=== PATIENT | female | born 1970 | race Caucasian/White ===

== ENCOUNTER 2016-07-03 13:14 | Inpatient (IN) | payer SELFPAY ==
[~2016-07-03] VITALS: Ht 172.7 cm; Wt 69.3 kg
[~2016-07-03 13:14] MED LIST: FOLI-17 PO; LEVO100T PO; MAGN400T26 PO; MULT-6 PO; NICO1PAT5 TD; OMEP-110 PO; PHOS250T3 PO; THIA100T10 PO
[2016-07-03] MEDS ORDERED: SODIUM CHLORIDE 0.9% 1,000 ML IV ONE (13:46)
[2016-07-03] MEDS ORDERED: FAMOTIDINE 20 MG/2 ML IVP ONE (14:00)
[2016-07-03] MEDS ORDERED: MAALOX/HYOSCYAMINE/LIDOCAINE 45 ML BOTTLE PO ONE ×2 (14:00→18:00)
[2016-07-03] MEDS ORDERED: LORazepam 2 MG/ML, 1ML IVPush ONE (14:00)
[2016-07-03] MEDS ORDERED: SODIUM CHLORIDE 0.9% 1,000ML IVBOLUS ONE (14:00)
[2016-07-03] MEDS ORDERED: ONDANSETRON 2MG/ML, 2ML IVPush ONE (14:00)
[2016-07-03] MEDS ORDERED: MAALOX/HYOSCYAMINE/LIDOCAINE 45 ML BOTTLE ONE (14:04)
[2016-07-03] MEDS ORDERED: ONDANSETRON 2MG/ML, 2ML ONE (14:04)
[2016-07-03] MEDS ORDERED: FAMOTIDINE 20 MG/2 ML ONE (14:05)
[2016-07-03] MEDS ORDERED: LORazepam 2 MG/ML, 1ML ONE (14:05)
[2016-07-03 14:25] LABS: HEMOGLOBIN 12.1 g/dL (11.7-16.4)
[2016-07-03 14:38] LABS: ASPARTATE AMINO TRANSFERASE 173 U/L (15-37); BLOOD UREA NITROGEN 7 mg/dL (7-18)
[2016-07-03 16:32] LABS: ICTOTEST POSITIVE
[2016-07-03] MEDS ORDERED: SODIUM CHLORIDE 0.9% 1,000 ML IV SCH (17:28)
[2016-07-03] MEDS ORDERED: LABETALOL 5MG/ML, 20ML IV PRN (17:30)
[2016-07-03] MEDS ORDERED: POLYETHYLENE GLYCOL 17 GM PACKET PO PRN (17:30)
[2016-07-03] MEDS ORDERED: LORazepam 1MG TABLET PO PRN ×4 (18:00)
[2016-07-03] MEDS ORDERED: LORazepam 2 MG/ML, 1ML IV PRN ×4 (18:00)
[2016-07-03 20:00] VITALS: BP 122/86
[2016-07-03] MEDS ORDERED: FAMOTIDINE 20 MG/2 ML IV SCH (21:00)
[2016-07-03] MEDS: POTASSIUM CHLORIDE 20 MEQ, MAGNESIUM SULFATE 1 GM, FOLIC ACID 1 MG, THIAMINE 100 MG, MV... IV SCH (21:54)
[2016-07-03] MEDS: PANTOPRAZOLE 40 MG IV IVPush SCH (21:54)
[2016-07-03] MEDS: HYDROcodone/APAP 5/325 TABLET PO PRN (22:16)
[2016-07-04] VITALS (7 sets, daily range): BP systolic 91–101; BP diastolic 61–69
[2016-07-04] MEDS: ENOXAPARIN 40 MG/0.4 ML SQ SCH (05:23)
[2016-07-04] MEDS ORDERED: LEVOTHYROXINE 100 MCG TABLET PO SCH (06:00)
[2016-07-04 06:01] LABS: HEMOGLOBIN 9.7 g/dL (11.7-16.4)
[2016-07-04 06:35] LABS: ASPARTATE AMINO TRANSFERASE 110 U/L (15-37); BLOOD UREA NITROGEN 5 mg/dL (7-18)
[2016-07-04] MEDS ORDERED: MAGNESIUM SULFATE PMX 2GM/50ML 50 ML IV ONE (08:00)
[2016-07-04] MEDS ORDERED: POTASSIUM CHLORIDE 20 MEQ TAB.ER.PRT PO ONE (08:00)
[2016-07-04] MEDS: D5%-0.45NACL+KCL 20MEQ 1,000 ML IV SCH (08:26)
[2016-07-04] MEDS: FOLIC ACID 1 MG TABLET PO SCH (08:27)
[2016-07-04] MEDS: PANTOPRAZOLE 40 MG IV IVPush SCH ×2 (08:27→20:50)
[2016-07-04] MEDS: THIAMINE 100MG TABLET PO SCH (08:27)
[2016-07-04] MEDS: HYDROcodone/APAP 5/325 TABLET PO PRN ×3 (08:28→18:34)
[2016-07-04] MEDS ORDERED: MAALOX/HYOSCYAMINE/LIDOCAINE 45 ML BOTTLE PO ONE (08:30)
[2016-07-04] MEDS: SENNA/DOCUSATE TABLET PO SCH (09:00)
[2016-07-04] MEDS: LORazepam 2 MG/ML, 1ML IV PRN (11:06)
[2016-07-04] MEDS: POTASSIUM CHLORIDE 20 MEQ, MAGNESIUM SULFATE 1 GM, FOLIC ACID 1 MG, THIAMINE 100 MG, MV... IV SCH (18:29)
[2016-07-05 03:00] VITALS: BP 96/62
[2016-07-05 03:42] VITALS: BP 97/65
[2016-07-05] MEDS: LORazepam 0.5MG TABLET PO PRN ×2 (03:43→11:57)
[2016-07-05] MEDS: LEVOTHYROXINE 125 MCG TABLET PO SCH (05:11)
[2016-07-05] MEDS: ENOXAPARIN 40 MG/0.4 ML SQ SCH (05:11)
[2016-07-05] MEDS: D5%-0.45NACL+KCL 20MEQ 1,000 ML IV SCH ×3 (05:11→23:00)
[2016-07-05 06:03] LABS: HEMOGLOBIN 10.7 g/dL (11.7-16.4)
[2016-07-05 06:19] LABS: ASPARTATE AMINO TRANSFERASE 77 U/L (15-37); BLOOD UREA NITROGEN 2 mg/dL (7-18)
[2016-07-05 06:33] LABS: ANISOCYTOSIS 1+; POLYCHROMASIA 1+
[2016-07-05 06:35] LABS: LARGE PLATELETS 1+
[2016-07-05 07:25] VITALS: BP 112/77
[2016-07-05 07:29] VITALS: BP 144/98
[2016-07-05] MEDS: ONDANSETRON 2MG/ML, 2ML IVP PRN ×2 (08:48→18:29)
[2016-07-05] MEDS: THIAMINE 100MG TABLET PO SCH (08:59)
[2016-07-05] MEDS: SENNA/DOCUSATE TABLET PO SCH (08:59)
[2016-07-05] MEDS: PANTOPRAZOLE 40 MG IV IVPush SCH ×2 (08:59→20:23)
[2016-07-05] MEDS: FOLIC ACID 1 MG TABLET PO SCH (08:59)
[2016-07-05] MEDS: HYDROcodone/APAP 5/325 TABLET PO PRN ×3 (09:00→20:23)
[2016-07-05 12:59] VITALS: BP 117/81
[2016-07-05 19:30] VITALS: BP 105/73
[2016-07-05] MEDS: POTASSIUM CHLORIDE 20 MEQ, MAGNESIUM SULFATE 1 GM, FOLIC ACID 1 MG, THIAMINE 100 MG, MV... IV SCH (22:20)
[2016-07-05] MEDS: MAGNESIUM HYDROXIDE 8%, 30ML UDC PO PRN (22:20)
[2016-07-06 01:58] VITALS: BP 107/72
[2016-07-06 05:43] LABS: ASPARTATE AMINO TRANSFERASE 65 U/L (15-37); BLOOD UREA NITROGEN 1 mg/dL (7-18)
[2016-07-06] MEDS: ONDANSETRON 2MG/ML, 2ML IVP PRN (06:00)
[2016-07-06] MEDS: LEVOTHYROXINE 125 MCG TABLET PO SCH (06:00)
[2016-07-06] MEDS: HYDROcodone/APAP 5/325 TABLET PO PRN ×4 (06:00→22:40)
[2016-07-06] MEDS: ENOXAPARIN 40 MG/0.4 ML SQ SCH (06:01)
[2016-07-06] MEDS: THIAMINE 100MG TABLET PO SCH (08:43)
[2016-07-06] MEDS: FOLIC ACID 1 MG TABLET PO SCH (08:43)
[2016-07-06] MEDS: SENNA/DOCUSATE TABLET PO SCH (08:43)
[2016-07-06] MEDS: PANTOPRAZOLE 40 MG IV IVPush SCH ×2 (08:43→20:28)
[2016-07-06] MEDS: MAGNESIUM HYDROXIDE 8%, 30ML UDC PO PRN (08:43)
[2016-07-06 09:15] VITALS: BP 108/76
[2016-07-06] MEDS: D5%-0.45NACL+KCL 20MEQ 1,000 ML IV SCH ×2 (11:55→22:39)
[2016-07-06] MEDS: ONDANSETRON ODT 4 MG PO PRN ×2 (11:55→17:10)
[2016-07-06 13:00] VITALS: BP 115/76
[2016-07-06 19:46] VITALS: BP 101/68
[2016-07-07 01:52] VITALS: BP 95/62
[2016-07-07] MEDS: POTASSIUM CHLORIDE 20 MEQ, MAGNESIUM SULFATE 1 GM, FOLIC ACID 1 MG, THIAMINE 100 MG, MV... IV SCH (01:58)
[2016-07-07] MEDS: ONDANSETRON 2MG/ML, 2ML IVP PRN (05:33)
[2016-07-07] MEDS: LORazepam 2 MG/ML, 1ML IV PRN (05:34)
[2016-07-07] MEDS: ENOXAPARIN 40 MG/0.4 ML SQ SCH (05:42)
[2016-07-07] MEDS: LEVOTHYROXINE 125 MCG TABLET PO SCH (05:43)
[2016-07-07 05:54] LABS: BLOOD UREA NITROGEN 2 mg/dL (7-18)
[2016-07-07 05:59] LABS: ASPARTATE AMINO TRANSFERASE 65 U/L (15-37)
[2016-07-07 07:40] VITALS: BP 107/71
[2016-07-07] MEDS ORDERED: ERGOCALCIFEROL 50,000 UNIT CAPSULE PO SCH (08:00)
[2016-07-07] MEDS: THIAMINE 100MG TABLET PO SCH (08:44)
[2016-07-07] MEDS: PANTOPRAZOLE 40 MG IV IVPush SCH ×2 (08:44→21:24)
[2016-07-07] MEDS: FOLIC ACID 1 MG TABLET PO SCH (08:44)
[2016-07-07] MEDS: SENNA/DOCUSATE TABLET PO SCH (09:00)
[2016-07-07] MEDS: HYDROcodone/APAP 5/325 TABLET PO PRN ×2 (11:29→18:35)
[2016-07-07 14:45] VITALS: BP 100/57
[2016-07-07 19:34] VITALS: BP 96/64
[2016-07-08] MEDS: POTASSIUM CHLORIDE 20 MEQ, MAGNESIUM SULFATE 1 GM, FOLIC ACID 1 MG, THIAMINE 100 MG, MV... IV SCH (00:13)
[2016-07-08] MEDS: LORazepam 0.5MG TABLET PO PRN (00:35)
[2016-07-08 01:36] VITALS: BP 92/56
[2016-07-08 05:54] LABS: HEMOGLOBIN 9.2 g/dL (11.7-16.4)
[2016-07-08 06:14] LABS: ASPARTATE AMINO TRANSFERASE 50 U/L (15-37); BLOOD UREA NITROGEN 3 mg/dL (7-18)
[2016-07-08] MEDS: ENOXAPARIN 40 MG/0.4 ML SQ SCH (06:20)
[2016-07-08] MEDS: LEVOTHYROXINE 125 MCG TABLET PO SCH (06:20)
[2016-07-08 07:11] VITALS: BP 113/75
[2016-07-08] MEDS: PANTOPRAZOLE 40 MG IV IVPush SCH ×2 (08:31→21:35)
[2016-07-08] MEDS: SENNA/DOCUSATE TABLET PO SCH (08:32)
[2016-07-08] MEDS: FOLIC ACID 1 MG TABLET PO SCH (08:32)
[2016-07-08] MEDS: THIAMINE 100MG TABLET PO SCH (08:32)
[2016-07-08] MEDS: HYDROcodone/APAP 5/325 TABLET PO PRN ×4 (08:44→23:15)
[2016-07-08 12:58] VITALS: BP 111/77
[2016-07-08 19:51] VITALS: BP 113/78
[2016-07-09] MEDS: POTASSIUM CHLORIDE 20 MEQ, MAGNESIUM SULFATE 1 GM, FOLIC ACID 1 MG, THIAMINE 100 MG, MV... IV SCH (00:12)
[2016-07-09 01:00] VITALS: BP 110/70
[2016-07-09 04:44] LABS: HEMOGLOBIN 10.1 g/dL (11.7-16.4)
[2016-07-09 04:56] LABS: BLOOD UREA NITROGEN 3 mg/dL (7-18)
[2016-07-09 05:00] LABS: ASPARTATE AMINO TRANSFERASE 48 U/L (15-37)
[2016-07-09] MEDS: LEVOTHYROXINE 125 MCG TABLET PO SCH (05:13)
[2016-07-09] MEDS: ENOXAPARIN 40 MG/0.4 ML SQ SCH (05:13)
[2016-07-09] MEDS: HYDROcodone/APAP 5/325 TABLET PO PRN ×2 (05:14→09:12)
[2016-07-09] MEDS: THIAMINE 100MG TABLET PO SCH (09:12)
[2016-07-09] MEDS: PANTOPRAZOLE 40 MG IV IVPush SCH (09:12)
[2016-07-09] MEDS: FOLIC ACID 1 MG TABLET PO SCH (09:12)
[2016-07-09] MEDS: SENNA/DOCUSATE TABLET PO SCH (09:15)
[2016-07-09 09:31] VITALS: BP 93/65
[2016-07-09] MEDS ORDERED: ERGO500017 PO (10:32)
[2016-07-09] MEDS ORDERED: LEVO125T PO (10:32)
[2016-07-09] MEDS ORDERED: OMEP-110 PO (10:32)
== END 2016-07-09 12:40 | disposition home or self-care (01) | DRG 896 ==
LOC: ED 14:45 → EDIP 16:54 → 4EST 18:38 → DCLOUNGE 07-09 11:41
PROC: 0T9B70Z Drainage of Bladder with Drainage Device, Via Natural or Artificial Opening (ICD-10-PCS; principal; 2016-07-03)
DX: F10.239 Alcohol dependence with withdrawal, unspecified (principal); E43 Unspecified severe protein-calorie malnutrition; E87.1 Hypo-osmolality and hyponatremia; I50.30 Unspecified diastolic (congestive) heart failure; I95.1 Orthostatic hypotension; D53.9 Nutritional anemia, unspecified; E03.9 Hypothyroidism, unspecified; E16.2 Hypoglycemia, unspecified; Z68.23 Body mass index [BMI] 23.0-23.9, adult; E55.9 Vitamin D deficiency, unspecified; E87.6 Hypokalemia; I11.0 Hypertensive heart disease with heart failure; K70.10 Alcoholic hepatitis without ascites; R82.71 Bacteriuria; F17.210 Nicotine dependence, cigarettes, uncomplicated; K70.0 Alcoholic fatty liver; K80.20 Calculus of gallbladder without cholecystitis without obstruction; N20.0 Calculus of kidney; Z82.49 Family history of ischemic heart disease and other diseases of the circulatory system; Z83.3 Family history of diabetes mellitus; Z87.442 Personal history of urinary calculi; Z83.49 Family history of other endocrine, nutritional and metabolic diseases; Z71.41 Alcohol abuse counseling and surveillance of alcoholic; Z98.51 Tubal ligation status; Z90.89 Acquired absence of other organs; Z79.899 Other long term (current) drug therapy; Z85.41 Personal history of malignant neoplasm of cervix uteri
CPT/HCPCS: 36415; 74022; 76700; 80053; 80061; 81001; 82306; 82607; 82746; 82962; 83690; 83735; 84100; 84439; 84443; 85025; 85610; 87077; 87086; 87186; 89055; 93005; 93306; 96361; 96374; 96375; J1650; J2405; J3411; J3475; J3480; J7042; Q0162; C9113; J2060; J7030; S0028

== ENCOUNTER 2016-09-04 15:52 | Emergency (ER) | payer SELFPAY ==
[~2016-09-04] VITALS: Ht 172.7 cm; Wt 57.0 kg
[~2016-09-04 15:52] MED LIST changes: +ERGO500017 PO; +LEVO125T PO
[2016-09-04] MEDS ORDERED: SODIUM CHLORIDE 0.9% 1,000ML IVBOLUS ONE (16:30)
[2016-09-04] MEDS ORDERED: KETOROLAC 30 MG/1 ML IVPush ONE (16:30)
[2016-09-04] MEDS ORDERED: SODIUM CHLORIDE FLUSH 10ML SYR IVF ONE (16:30)
[2016-09-04] MEDS ORDERED: KETOROLAC 30 MG/1 ML ONE (16:55)
[2016-09-04 17:29] LABS: BLOOD UREA NITROGEN 4 mg/dL (7-18)
[2016-09-04 17:34] LABS: ASPARTATE AMINO TRANSFERASE 28 U/L (15-37)
[2016-09-04 17:40] LABS: IS PT STATUS REG ER OR PRE ER? YES
[2016-09-04] MEDS ORDERED: POTASSIUM CHLORIDE 20 MEQ TAB.ER.PRT PO ONE (18:30)
[2016-09-04] MEDS ORDERED: POTASSIUM CHLORIDE 20 MEQ TAB.ER.PRT ONE (18:36)
[2016-09-04 19:01] VITALS: BP 124/85
== END 2016-09-04 19:03 | disposition home or self-care (01) ==
LOC: ED 18:57
DX: E87.6 Hypokalemia (principal); E03.9 Hypothyroidism, unspecified
CPT/HCPCS: 36415; 71010; 80053; 84484; 85025; 85610; 85730; 93005; 96361; 96374; 99285; J1885; J7030

== ENCOUNTER 2016-09-22 03:41 | Emergency (ER) | payer SELFPAY ==
[~2016-09-22] VITALS: Ht 175.3 cm; Wt 55.0 kg
[2016-09-22 07:20] LABS: BLOOD UREA NITROGEN 6 mg/dL (7-18)
[2016-09-22] MEDS ORDERED: POTASSIUM CHLORIDE 20 MEQ TAB.ER.PRT ONE (07:58)
[2016-09-22 08:00] VITALS: BP 114/83
[2016-09-22] MEDS ORDERED: POTASSIUM CHLORIDE 20 MEQ TAB.ER.PRT PO ONE (08:00)
== END 2016-09-22 08:38 | disposition home or self-care (01) ==
LOC: ED 07:10
DX: S09.90XA Unspecified injury of head, initial encounter (principal); S16.1XXA Strain of muscle, fascia and tendon at neck level, initial encounter; F10.10 Alcohol abuse, uncomplicated; R93.8 Abnormal findings on diagnostic imaging of other specified body structures; F17.200 Nicotine dependence, unspecified, uncomplicated; E87.6 Hypokalemia; E07.9 Disorder of thyroid, unspecified; W01.0XXA Fall on same level from slipping, tripping and stumbling without subsequent striking against object, initial encounter; Y93.89 Activity, other specified; Y92.098 Other place in other non-institutional residence as the place of occurrence of the external cause; Y99.8 Other external cause status; Y90.9 Presence of alcohol in blood, level not specified
CPT/HCPCS: 36415; 70450; 72125; 80048; 82550; 85025; 99285

== ENCOUNTER 2016-09-24 07:31 | Emergency (ER) | payer SELFPAY ==
[~2016-09-24] VITALS: Ht 175.3 cm; Wt 57.0 kg
[2016-09-24] MEDS ORDERED: ONDANSETRON 2MG/ML, 2ML IVPush ONE (08:00)
[2016-09-24] MEDS ORDERED: SODIUM CHLORIDE FLUSH 10ML SYR IVF ONE (08:00)
[2016-09-24] MEDS ORDERED: LORazepam 2 MG/ML, 1ML IVPush ONE (08:00)
[2016-09-24] MEDS ORDERED: SODIUM CHLORIDE 0.9% 1,000ML IVBOLUS ONE (08:00)
[2016-09-24] MEDS ORDERED: FAMOTIDINE 20 MG/2 ML IVP ONE (08:00)
[2016-09-24] MEDS ORDERED: LORazepam 2 MG/ML, 1ML ONE (08:26)
[2016-09-24] MEDS ORDERED: ONDANSETRON 2MG/ML, 2ML ONE (08:26)
[2016-09-24] MEDS ORDERED: FAMOTIDINE 20 MG/2 ML ONE (08:26)
[2016-09-24 08:34] LABS: BLOOD UREA NITROGEN 8 mg/dL (7-18)
[2016-09-24 08:35] LABS: ASPARTATE AMINO TRANSFERASE 61 U/L (15-37)
[2016-09-24] MEDS ORDERED: THIAMINE 100MG TABLET ONE (08:54)
[2016-09-24] MEDS ORDERED: THIAMINE 100MG TABLET PO ONE (09:00)
[2016-09-24 09:28] LABS: PATH.CAST-FLAG NOT PRESENT; SPERM-FLAG NOT PRESENT; SRC-FLAG NOT PRESENT; XTAL-FLAG NOT PRESENT; YLC-FLAG NOT PRESENT
[2016-09-24] MEDS ORDERED: CEFTRIAXONE PMX 1GM/50ML 50 ML ONE (09:47)
[2016-09-24 09:50] VITALS: BP 142/85
[2016-09-24] MEDS ORDERED: CEFTRIAXONE PMX 1GM/50ML 50 ML IV ONE (10:00)
[2016-09-24] MEDS ORDERED: CEFTRIAXONE 1,000 MG IV ONE (10:00)
== END 2016-09-24 10:14 | disposition home or self-care (01) ==
LOC: ED 08:49
DX: N30.90 Cystitis, unspecified without hematuria (principal); R11.2 Nausea with vomiting, unspecified; K92.2 Gastrointestinal hemorrhage, unspecified; E03.9 Hypothyroidism, unspecified; R19.7 Diarrhea, unspecified
CPT/HCPCS: 36415; 80053; 81001; 83690; 84703; 85025; 87077; 87086; 87186; 93005; 96361; 96365; 96375; 99285; J0696; J2060; J2405; J7030; S0028

== ENCOUNTER 2017-02-26 14:42 | Emergency (ER) | payer SELFPAY ==
[~2017-02-26] VITALS: Ht 175.3 cm; Wt 60.8 kg
[~2017-02-26 14:42] MED LIST changes: +NICO-487 TD; -NICO1PAT5 TD
[2017-02-26] MEDS ORDERED: FAMOTIDINE 20 MG/2 ML ONE (15:13)
[2017-02-26] MEDS ORDERED: ONDANSETRON 2MG/ML, 2ML ONE ×2 (15:13→18:56)
[2017-02-26] MEDS ORDERED: SODIUM CHLORIDE 0.9% 1,000ML IVBOLUS ONE (15:30)
[2017-02-26] MEDS ORDERED: FAMOTIDINE 20 MG/2 ML IVP ONE (15:30)
[2017-02-26] MEDS ORDERED: ONDANSETRON 2MG/ML, 2ML IVPush ONE ×2 (15:30→19:00)
[2017-02-26] MEDS ORDERED: IBUP1TAB11 PO (15:35)
[2017-02-26 15:50] LABS: HEMATOCRIT 43.1 % (34.6-47.8); HEMOGLOBIN 14.9 g/dL (11.7-16.4); WHITE BLOOD COUNT 5.7 x10^3/uL (3.4-10)
[2017-02-26] MEDS ORDERED: THIAMINE 100MG TABLET PO ONE (16:00)
[2017-02-26 16:05] LABS: BLOOD UREA NITROGEN 5 mg/dL (7-18)
[2017-02-26 16:10] LABS: ASPARTATE AMINO TRANSFERASE 278 U/L (15-37)
[2017-02-26] MEDS ORDERED: THIAMINE 100MG TABLET ONE (16:13)
[2017-02-26 18:04] LABS: PATH.CAST-FLAG NOT PRESENT; SPERM-FLAG NOT PRESENT; SRC-FLAG NOT PRESENT; XTAL-FLAG NOT PRESENT; YLC-FLAG NOT PRESENT
[2017-02-26] MEDS ORDERED: CEFTRIAXONE PMX 1GM/50ML 50 ML IV ONE (18:30)
[2017-02-26] MEDS ORDERED: CEFTRIAXONE PMX 1GM/50ML 50 ML ONE (18:56)
[2017-02-26 19:06] VITALS: BP 112/82
== END 2017-02-26 20:03 | disposition home or self-care (01) ==
LOC: ED 18:27
DX: M48.56XA Collapsed vertebra, not elsewhere classified, lumbar region, initial encounter for fracture (principal); N30.90 Cystitis, unspecified without hematuria; F10.20 Alcohol dependence, uncomplicated; E03.9 Hypothyroidism, unspecified; R11.10 Vomiting, unspecified; R19.7 Diarrhea, unspecified
CPT/HCPCS: 36415; 72072; 72110; 72148; 80053; 80307; 81001; 83690; 84703; 85025; 87077; 87086; 96361; 96365; 96375; 96376; 99285; J0696; J2405; J7030; 87186; G0479; S0028

== ENCOUNTER → 2017-04-19 | Outpatient (CLI) | payer BC, OTHER ==
[~2017-04-19] MED LIST changes: +IBUP1TAB11 PO
== END | disposition home or self-care (01) ==
LOC: CFH 08:17
PROVIDERS: ATTEND Neurological Surgery
DX: M48.56XA Collapsed vertebra, not elsewhere classified, lumbar region, initial encounter for fracture (principal); N20.0 Calculus of kidney; M85.88 Other specified disorders of bone density and structure, other site; M48.061 Spinal stenosis, lumbar region without neurogenic claudication
CPT/HCPCS: 72131

== ENCOUNTER 2017-05-12 07:48 | Inpatient (IN) | payer BC ==
[~2017-05-12] VITALS: Ht 172.7 cm; Wt 59.4 kg
[2017-05-12] MEDS ORDERED: LEVO125T PO (08:09)
[2017-05-12] MEDS ORDERED: SODIUM CHLORIDE 0.9% 1,000ML IVBOLUS ONE (08:30)
[2017-05-12] MEDS ORDERED: SODIUM CHLORIDE FLUSH 10ML SYR IVF ONE (08:30)
[2017-05-12] MEDS ORDERED: LORazepam 2 MG/ML, 1ML IVPush ONE (08:30)
[2017-05-12] MEDS ORDERED: ONDANSETRON 2MG/ML, 2ML IVPush ONE (08:30)
[2017-05-12 08:39] LABS: BASOPHILS # (AUTO) 0.05 x10^3/uL (0-0.1); BASOPHILS % (AUTO) 1 % (0-1); EOSINOPHILS # (AUTO) 0.04 x10^3/uL (0-0.4); EOSINOPHILS % (AUTO) 1 % (1-7); LYMPHOCYTES # (AUTO) 1.23 x10^3/uL (1-3.4); LYMPHOCYTES % (AUTO) 18 % (22-44); MD NO; MEAN CORPUSCULAR HEMOGLOBIN 35.4 pg (27.0-34.8); MONOCYTES # (AUTO) 0.38 x10^3/uL (0.2-0.8); MONOCYTES % (AUTO) 6 % (2-9); NEUTROPHILS # (AUTO) 4.98 x10^3/uL (1.8-6.8); NEUTROPHILS % (AUTO) 75 % (42-75); PLATELET COUNT 144 x10^3/uL (130-400); RED BLOOD COUNT 3.61 x10^6/uL (3.82-5.3)
[2017-05-12] MEDS ORDERED: ONDANSETRON 2MG/ML, 2ML ONE (08:39)
[2017-05-12] MEDS ORDERED: LORazepam 2 MG/ML, 1ML ONE (08:39)
[2017-05-12 08:50] LABS: ALANINE AMINOTRANSFERASE 70 U/L (12-78); ALBUMIN 3.5 g/dL (3.4-5.0); CHLORIDE 69 mmol/L (98-107); CREATININE 1.07 mg/dL (0.55-1.02)
[2017-05-12 08:55] LABS: ALKALINE PHOSPHATASE 311 U/L (45-117); BILIRUBIN,TOTAL 1.5 mg/dL (0.2-1.0); TOTAL PROTEIN 7.9 g/dL (6.4-8.2); TROPONIN I < 0.015 ng/mL (0.000-0.045)
[2017-05-12 09:00] LABS: ANION GAP 13 mmol/L (5-15)
[2017-05-12] MEDS ORDERED: SODIUM CHLORIDE 0.9% 1,000 ML IV ONE (09:16)
[2017-05-12] MEDS ORDERED: POTASSIUM CHLORIDE 40 MEQ in SODIUM CHLORIDE 0.9% 500 ML IV ONE (09:30)
[2017-05-12] MEDS ORDERED: ONDANSETRON 2MG/ML, 2ML IVPush PRN (10:00)
[2017-05-12] MEDS ORDERED: CHLORDIAZEPOXIDE 25 MG CAPSULE PO PRN ×2 (10:00)
[2017-05-12] MEDS ORDERED: MAGNESIUM SULFATE PMX 2GM/50ML 50 ML IV ONE (10:00)
[2017-05-12] MEDS ORDERED: METOCLOPRAMIDE 5 MG/ML, 2ML IVPush PRN (10:00)
[2017-05-12] MEDS ORDERED: CHLORDIAZEPOXIDE 10 MG CAPSULE PO PRN (10:00)
[2017-05-12] MEDS ORDERED: FOLIC ACID 5 MG/ML IM ONE ×2 (10:00→12:30)
[2017-05-12] MEDS: FOLIC ACID IM ONE ×2 (11:00→11:43)
[2017-05-12] MEDS: FAMOTIDINE 20 MG/2 ML IVPush SCH ×2 (11:42→20:28)
[2017-05-12] MEDS: POTASSIUM CHLORIDE 40 MEQ in D5%-LACTATED RINGERS 1,000 ML IV SCH ×2 (11:42→22:08)
[2017-05-12] MEDS: NICOTINE 7 MG/24 HR PATCH.TD24 TD SCH (11:42)
[2017-05-12 13:31] VITALS: BP 113/73
[2017-05-12] MEDS: CHLORDIAZEPOXIDE 25 MG CAPSULE PO PRN ×2 (14:51→21:25)
[2017-05-12 16:03] LABS: ANION GAP 10 mmol/L (5-15); CALCIUM 8.1 mg/dL (8.5-10.1); CHLORIDE 84 mmol/L (98-107)
[2017-05-12] MEDS: MAGNESIUM CHLORIDE 64 MG TABLET.DR PO SCH ×3 (16:40→21:26)
[2017-05-12 20:00] VITALS: BP 97/77
[2017-05-12 21:34] VITALS: BP 113/82
[2017-05-13 02:25] VITALS: BP 93/57
[2017-05-13 07:00] VITALS: BP 91/56
[2017-05-13 07:35] LABS: ALANINE AMINOTRANSFERASE 42 U/L (12-78); ALBUMIN 2.3 g/dL (3.4-5.0); ANION GAP 7 mmol/L (5-15); CALCIUM 8.1 mg/dL (8.5-10.1); CHLORIDE 95 mmol/L (98-107)
[2017-05-13 07:37] LABS: ALKALINE PHOSPHATASE 219 U/L (45-117); BILIRUBIN,TOTAL 0.9 mg/dL (0.2-1.0); TOTAL PROTEIN 5.4 g/dL (6.4-8.2)
[2017-05-13] MEDS: FAMOTIDINE 20 MG/2 ML IVPush SCH ×2 (08:40→20:53)
[2017-05-13] MEDS: MAGNESIUM CHLORIDE 64 MG TABLET.DR PO SCH ×3 (08:40→20:53)
[2017-05-13] MEDS: LEVOTHYROXINE 125 MCG TABLET PO SCH (08:40)
[2017-05-13] MEDS: POTASSIUM CHLORIDE 40 MEQ in D5%-LACTATED RINGERS 1,000 ML IV SCH (08:40)
[2017-05-13] MEDS: NICOTINE 7 MG/24 HR PATCH.TD24 TD SCH (08:41)
[2017-05-13] MEDS: CHLORDIAZEPOXIDE 25 MG CAPSULE PO PRN (11:24)
[2017-05-13 13:10] VITALS: BP 91/56
[2017-05-13 15:31] LABS: INTERNATIONAL NORMALIZED RATIO 0.99 (0.93-1.1); PROTHROMBIN TIME 10.2 Seconds (9.6-11.5)
[2017-05-13 15:34] LABS: ANION GAP 6 mmol/L (5-15); CALCIUM 8.4 mg/dL (8.5-10.1); CHLORIDE 97 mmol/L (98-107); CREATININE 0.79 mg/dL (0.55-1.02)
[2017-05-13 16:20] VITALS: BP 103/71
[2017-05-13] MEDS ORDERED: FENTANYL PF 250 MCG/5ML ONE (16:35)
[2017-05-13] MEDS ORDERED: MIDAZOLAM 1 MG/ML, 2ML ONE (16:35)
[2017-05-13] MEDS ORDERED: PROPOFOL 10 MG/ML, 20ML ONE (16:37)
[2017-05-13] MEDS ORDERED: ROCURONIUM 10 MG/ML,10ML ONE (16:37)
[2017-05-13] MEDS ORDERED: SUCCINYLCHOLINE 20 MG/ML, 10ML ONE (16:38)
[2017-05-13] MEDS ORDERED: GLYCOPYRROLATE 0.4 MG/2 ML, 2ML ONE (16:38)
[2017-05-13] MEDS ORDERED: NEOSTIGMINE 1 MG/ML, 10ML ONE (16:38)
[2017-05-13] MEDS ORDERED: DEXAMETHASONE 4 MG/ML, 1ML ONE ×2 (16:39)
[2017-05-13] MEDS ORDERED: ONDANSETRON 2MG/ML, 2ML ONE (16:39)
[2017-05-13] MEDS ORDERED: PHENYLEPHRINE 10 MG/ML ONE (16:56)
[2017-05-13] MEDS ORDERED: CEFOTETAN PMX 2GM/50ML 50 ML ONE (16:56)
[2017-05-13] MEDS ORDERED: ONDANSETRON 2MG/ML, 2ML IVPush PRN (17:00)
[2017-05-13] MEDS ORDERED: LABETALOL 5MG/ML, 20ML IV PRN (17:00)
[2017-05-13] MEDS ORDERED: OXYcodone 5 MG/5 ML ORAL.SOL UDC PO PRN (17:00)
[2017-05-13] MEDS ORDERED: ACETAMINOPHEN 325 MG TABLET PO PRN (17:00)
[2017-05-13] MEDS ORDERED: hydrALAzine 20 MG/ML, 1ML IV PRN (17:00)
[2017-05-13] MEDS ORDERED: FENTANYL PF 100 MCG/2ML IV PRN (17:00)
[2017-05-13] MEDS ORDERED: PROMETHAZINE 12.5 MG SUPP PR PRN (17:00)
[2017-05-13] MEDS ORDERED: HYDROmorphone 1 MG/ML, 1ML IV PRN (17:00)
[2017-05-13] MEDS ORDERED: MEPERIDINE/PF 25MG/0.5ML IVPush PRN (17:00)
[2017-05-13] MEDS ORDERED: BUPIVACAINE/PF-EPI 0.5% 1:200K IM ONE (17:16)
[2017-05-13] MEDS ORDERED: THROMBIN 5,000 UNIT VIAL TP ONE (17:28)
[2017-05-13] MEDS ORDERED: ACETAMINOPHEN 650 MG/20.3 ML UDC ONE (18:13)
[2017-05-13] MEDS ORDERED: OXYcodone 5 MG/5 ML ORAL.SOL UDC ONE (18:14)
[2017-05-13 19:15] VITALS: BP 129/87
[2017-05-13] MEDS ORDERED: OXYcodone/APAP 5/325MG TABLET PO PRN (19:30)
[2017-05-13] MEDS ORDERED: morphine SULFATE 10 MG/ML, 1ML IVPush PRN (19:30)
[2017-05-13] MEDS ORDERED: OXYcodone IR 5MG TABLET PO PRN (19:30)
[2017-05-14 00:30] VITALS: BP 84/52
[2017-05-14 00:46] VITALS: BP 92/59
[2017-05-14] MEDS: POTASSIUM CHLORIDE 40 MEQ in D5%-LACTATED RINGERS 1,000 ML IV SCH ×2 (03:34→05:10)
[2017-05-14] MEDS: LEVOTHYROXINE 125 MCG TABLET PO SCH (06:04)
[2017-05-14 06:15] VITALS: BP 91/55
[2017-05-14] MEDS ORDERED: THIAMINE 100 MG in DEXTROSE 5% 50 ML IVPB SCH (09:00)
[2017-05-14] MEDS: MAGNESIUM CHLORIDE 64 MG TABLET.DR PO SCH (09:01)
[2017-05-14] MEDS: NICOTINE 7 MG/24 HR PATCH.TD24 TD SCH (09:01)
[2017-05-14] MEDS: FAMOTIDINE 20 MG/2 ML IVPush SCH (09:01)
[2017-05-14] MEDS ORDERED: OXYcodone IR 5MG TABLET ONE (09:25)
[2017-05-14] MEDS ORDERED: MULT1TAB60 PO (10:36)
[2017-05-14] MEDS ORDERED: FOLI0.4T2 PO (10:36)
[2017-05-14] MEDS ORDERED: THIA100T6 PO (10:36)
[2017-05-14] MEDS ORDERED: OXYcodone IR 5MG TABLET PO PRN (11:30)
[2017-05-14 12:27] VITALS: BP 117/79
== END 2017-05-14 13:00 | disposition home or self-care (01) | DRG 417 ==
LOC: ED 08:34 → EDIP 09:22 → 4EST 10:44
PROVIDERS: ADMIT Hospitalist; ATTEND Family Medicine
PROC: 0FB03ZX Excision of Liver, Percutaneous Approach, Diagnostic (ICD-10-PCS; 2017-05-13)
PROC: 0FT44ZZ Resection of Gallbladder, Percutaneous Endoscopic Approach (ICD-10-PCS; principal; 2017-05-13 16:00)
DX: K80.10 Calculus of gallbladder with chronic cholecystitis without obstruction (principal); N17.0 Acute kidney failure with tubular necrosis; E87.1 Hypo-osmolality and hyponatremia; E87.3 Alkalosis; F10.239 Alcohol dependence with withdrawal, unspecified; E87.8 Other disorders of electrolyte and fluid balance, not elsewhere classified; E03.9 Hypothyroidism, unspecified; E87.6 Hypokalemia; K74.60 Unspecified cirrhosis of liver; K76.0 Fatty (change of) liver, not elsewhere classified; Z79.899 Other long term (current) drug therapy; Z85.41 Personal history of malignant neoplasm of cervix uteri; Z87.891 Personal history of nicotine dependence
CPT/HCPCS: 36415; 71045; 74018; 74181; 76700; 80048; 80053; 83735; 84484; 85025; 85610; 88304; 88307; 88313; 93005; 96365; 96366; 96375; J1100; J2250; J2405; J2704; J2710; J3010; J3411; J3480; J0330; J2060; J2270; J2370; J3475; J7030; J7040; J7121; S0028; S0074

== ENCOUNTER 2017-05-17 04:55 | Emergency (ER) | payer BC ==
[~2017-05-17] VITALS: Ht 172.7 cm; Wt 65.4 kg
[~2017-05-17 04:55] MED LIST changes: +FOLI0.4T2 PO; +MULT1TAB60 PO; +THIA100T6 PO
[2017-05-17 05:07] VITALS: BP 144/78
[2017-05-17] MEDS ORDERED: MORPHINE SULFATE 4 MG/ML, 1ML IVPush PRN (06:30)
[2017-05-17] MEDS ORDERED: SODIUM CHLORIDE FLUSH 10ML SYR IVF ONE (06:30)
[2017-05-17] MEDS ORDERED: ONDANSETRON 2MG/ML, 2ML IVPush ONE (06:30)
[2017-05-17] MEDS ORDERED: MORPHINE SULFATE 4 MG/ML, 1ML ONE (06:48)
[2017-05-17] MEDS ORDERED: ONDANSETRON 2MG/ML, 2ML ONE (06:49)
[2017-05-17 07:18] LABS: BASOPHILS # (AUTO) 0.04 x10^3/uL (0-0.1); BASOPHILS % (AUTO) 1 % (0-1); EOSINOPHILS # (AUTO) 0.13 x10^3/uL (0-0.4); EOSINOPHILS % (AUTO) 2 % (1-7); LYMPHOCYTES % (AUTO) 22 % (22-44); MD NO; MEAN CORPUSCULAR HEMOGLOBIN 35.5 pg (27.0-34.8); MEAN CORPUSCULAR HGB CONC 33.5 g/dL (32.4-35.8); MEAN CORPUSCULAR VOLUME 106.2 fL (80-100); MEAN PLATELET VOLUME 7.9 fL (7.4-10.4); MONOCYTES # (AUTO) 0.18 x10^3/uL (0.2-0.8); MONOCYTES % (AUTO) 3 % (2-9); NEUTROPHILS # (AUTO) 4.53 x10^3/uL (1.8-6.8); NEUTROPHILS % (AUTO) 72 % (42-75); PLATELET COUNT 180 x10^3/uL (130-400); RED BLOOD COUNT 2.85 x10^6/uL (3.82-5.3); RED CELL DISTRIBUTION WIDTH 15.7 % (9.6-15.2)
[2017-05-17 07:30] LABS: ANION GAP 8 mmol/L (5-15); CALCIUM 8.2 mg/dL (8.5-10.1); CHLORIDE 106 mmol/L (98-107); CREATININE 0.75 mg/dL (0.55-1.02)
[2017-05-17 07:31] LABS: ALBUMIN 2.2 g/dL (3.4-5.0)
[2017-05-17 07:34] LABS: TROPONIN I < 0.015 ng/mL (0.000-0.045)
[2017-05-17] MEDS ORDERED: OMNIPAQUE 350 MG/ML, 100ML BOTTLE ONE (08:39)
== END 2017-05-17 10:00 | disposition home or self-care (01) ==
LOC: ED 05:53
DX: R60.0 Localized edema (principal); M48.56XA Collapsed vertebra, not elsewhere classified, lumbar region, initial encounter for fracture; Z90.49 Acquired absence of other specified parts of digestive tract; F17.210 Nicotine dependence, cigarettes, uncomplicated; Z98.890 Other specified postprocedural states
CPT/HCPCS: 36415; 71275; 80048; 82040; 83880; 84484; 85025; 93005; 93970; 96374; 96375; 99285; J2405; Q9967

== ENCOUNTER 2018-08-28 18:20 | Emergency (ER) | payer BC ==
[~2018-08-28] VITALS: Ht 172.7 cm; Wt 65.0 kg
[~2018-08-28 18:20] MED LIST changes: -THIA100T6 PO; +THIA100T67 PO
[2018-08-28] MEDS ORDERED: HTN MED PO (18:33)
--- NOTE | 2018-08-28 18:34 | NUR ---
BIB BY EMS FROM WORK. PT RPTS SHE WAS WALKING INTO WORK FELT "OFF" +SYNCOPAL EPISODE, 2CM SKIN ABRASION TO LEFT FOREHEAD. DENIES CP OR SOB DOES STATE THAT HER FEET TINGLY. EKG COMPLETED AND ALL MONITORS PLACED, NAD NOTED AND VSS. CALL LIGHT W/I REACH. AWAITING MD RUTHERFORD
--- NOTE | 2018-08-28 19:00 | NUR ---
REPORT FROM GABO BEAN
[2018-08-28 19:17] LABS: MEAN CORPUSCULAR HEMOGLOBIN 38.1 pg (27.0-34.8); MEAN CORPUSCULAR HGB CONC 33.8 g/dL (32.4-35.8); MEAN CORPUSCULAR VOLUME 112.8 fL (80-100); MEAN PLATELET VOLUME 7.9 fL (7.4-10.4); PLATELET COUNT 127 x10^3/uL (130-400); RED BLOOD COUNT 2.97 x10^6/uL (3.82-5.3); RED CELL DISTRIBUTION WIDTH 16.5 % (9.6-15.2)
[2018-08-28 19:30] LABS: ALANINE AMINOTRANSFERASE 97 U/L (12-78); ALBUMIN 3.3 g/dL (3.4-5.0); ANION GAP 14 mmol/L (5-15); CALCIUM 8.5 mg/dL (8.5-10.1); CHLORIDE 105 mmol/L (98-107); CREATININE 0.81 mg/dL (0.55-1.02)
--- NOTE | 2018-08-28 19:30 | NUR ---
WITH REASSESSMENT NO COMPLAINTS VITALS STABLE ON FEEDMOBILE DRIVER CLARIFIED PLAN WITH PROVIDER (REPLETE K/MTF/FURTHER TESTING?) PLAN TO CTA CHEST AND PROCEED FROM THERE
[2018-08-28 19:34] LABS: ALKALINE PHOSPHATASE 293 U/L (45-117); BILIRUBIN,TOTAL 3.3 mg/dL (0.2-1.0); D-DIMER 1.12 ug/mlFEU (0.00-0.52); INTERNATIONAL NORMALIZED RATIO 1.15 (0.93-1.1); TOTAL PROTEIN 6.9 g/dL (6.4-8.2); TROPONIN I < 0.015 ng/mL (0.000-0.045)
[2018-08-28 19:55] LABS: FREE T4 (FREE THYROXINE) 0.45 ng/dL (0.76-1.46)
[2018-08-28 20:03] LABS: MD YES
[2018-08-28 20:07] LABS: BAND#(MANUAL) 0.23 x10^3/uL; BANDS%(MANUAL) 3 % (0-7); BASOS#(MANUAL) 0.08 x10^3/uL (0-0.1); BASOS% (MANUAL) 1 % (0-1); EOS#(MANUAL) 0.39 x10^3/uL (0.0-0.4); EOS% (MANUAL) 5 % (1-7); LYMPH#(MANUAL) 1.17 x10^3/uL (1-3.4); LYMPHS% (MANUAL) 15 % (22-44); MONOS#(MANUAL) 0.47 x10^3/uL (0.3-2.7); MONOS% (MANUAL) 6 % (2-9); SEG#(MANUAL) 5.46 x10^3/uL (1.8-6.8); SEGS% (MANUAL) 70 % (42-75)
[2018-08-28 20:09] LABS: <PLATELET ESTIMATE> DECREASED; <PLT MORPHOLOGY> NORMAL PLT MORPH
--- NOTE | 2018-08-28 20:45 | NUR ---
CT SCAN CALLED TO CLARIFY IN RIGHT FOREARM PIV SUFFICIENT FOR PENDING CTA. NO ANSWER. TO TRY AGAIN SHORTLY PATIENT CONTINUES TO DENY COMPLAINTS RESTING IN BED ' VITALS STABLE ON CLIENT ARCHITECT CALL TELLO IN HAND/SIDE RAILS UP UPDATED ON POC
[2018-08-28] MEDS ORDERED: POTASSIUM CHLORIDE 20 MEQ TAB.ER.PRT PO ONE (21:00)
--- NOTE | 2018-08-28 21:00 | NUR ---
AFTER CLARIFICATION W/ PROVIDER PATIENT PROVIDED WITH SOME WATER GROCERY BUYER SATISFIED WITH FOREARM PIV FOR CTA- TO CT SCAN AT [id number]
[2018-08-28] MEDS ORDERED: POTASSIUM CHLORIDE 20 MEQ TAB.ER.PRT ONE (21:14)
--- NOTE | 2018-08-28 21:15 | NUR ---
REPORT RECEIVED FROM RUBEN BEAN.
--- NOTE | 2018-08-28 21:15 | NUR ---
REPORT TO MARTHA BEAN
--- NOTE | 2018-08-28 21:30 | NUR ---
PT BACK TO ROOM FROM CT NOW.
[2018-08-28] MEDS ORDERED: OMNIPAQUE 350 MG/ML, 100ML BOTTLE ONE (21:37)
--- NOTE | 2018-08-28 22:05 | NUR ---
pt is able to walk without dizzyness at this time. edmd notified.
[2018-08-28 22:33] VITALS: BP 96/67
--- NOTE | 2018-08-28 22:34 | NUR ---
pt given dc instructions and script. pt educated regarding dc medication. pt's aox4. resps even and unlabored. pt amb to dc with steady gait. no acute distress at dc.
== END 2018-08-28 22:35 | disposition home or self-care (01) ==
LOC: ED 19:51
DX: R55 Syncope and collapse (principal); F10.120 Alcohol abuse with intoxication, uncomplicated; E87.6 Hypokalemia; I10 Essential (primary) hypertension; E03.9 Hypothyroidism, unspecified; F17.200 Nicotine dependence, unspecified, uncomplicated
CPT/HCPCS: 36415; 70450; 71275; 80053; 80307; 83690; 83735; 84439; 84443; 84484; 85025; 85379; 85610; 85730; 93005; 99284; Q9967

== ENCOUNTER 2018-09-25 02:30 | Inpatient (IN) | payer BC ==
[~2018-09-25] VITALS: Ht 172.7 cm; Wt 83.2 kg
[~2018-09-25 02:30] MED LIST changes: +HTN MED PO
--- NOTE | 2018-09-25 02:49 | NUR ---
PT IN GOWN IN [facility]. DR LOGAN AT BS. PT ATTACHED TO VS MACHINES, VSS AT THIS TIME. PT EDUCATED ON ER PROCESS AND POC AND VERBALIZES UNDERSTANDING. CALL LIGHT IS WITHIN REACH AT THIS TIME. AWAITING ORDERS.
--- NOTE | 2018-09-25 02:59 | NUR ---
US AT BS WITH PT.
[2018-09-25 03:16] LABS: ALANINE AMINOTRANSFERASE 60 U/L (12-78); ALBUMIN 2.6 g/dL (3.4-5.0); ANION GAP 15 mmol/L (5-15); CALCIUM 8.4 mg/dL (8.5-10.1); CHLORIDE 96 mmol/L (98-107); CREATININE 0.88 mg/dL (0.55-1.02)
[2018-09-25 03:41] LABS: ALKALINE PHOSPHATASE 280 U/L (45-117); FREE T4 (FREE THYROXINE) 0.57 ng/dL (0.76-1.46); TOTAL PROTEIN 6.8 g/dL (6.4-8.2)
[2018-09-25] MEDS ORDERED: POTASSIUM CHLORIDE 40 MEQ in SODIUM CHLORIDE 0.9% 500 ML IV ONE (04:30)
[2018-09-25 05:01] LABS: MD YES; MEAN CORPUSCULAR HEMOGLOBIN 39.8 pg (27.0-34.8); MEAN CORPUSCULAR HGB CONC 32.5 g/dL (32.4-35.8); MEAN CORPUSCULAR VOLUME 122.6 fL (80-100); MEAN PLATELET VOLUME 6.9 fL (7.4-10.4); PLATELET COUNT 144 x10^3/uL (130-400); RED BLOOD COUNT 2.35 x10^6/uL (3.82-5.3); RED CELL DISTRIBUTION WIDTH 19.7 % (9.6-15.2)
[2018-09-25 05:04] LABS: BAND#(MANUAL) 0.63 x10^3/uL; BANDS%(MANUAL) 4 % (0-7); BASOS#(MANUAL) 0.16 x10^3/uL (0-0.1); BASOS% (MANUAL) 1 % (0-1); LYMPH#(MANUAL) 1.42 x10^3/uL (1-3.4); LYMPHS% (MANUAL) 9 % (22-44); METAMYELOCYTES# (MANUAL) 0.16 x10^3/uL (0-0); METAMYELOCYTES% (MANUAL) 1 % (0-1); MONOS#(MANUAL) 0.47 x10^3/uL (0.3-2.7); MONOS% (MANUAL) 3 % (2-9); SEG#(MANUAL) 12.96 x10^3/uL (1.8-6.8); SEGS% (MANUAL) 82 % (42-75)
[2018-09-25 05:05] LABS: <PLATELET ESTIMATE> DECREASED; <PLT MORPHOLOGY> NORMAL PLT MORPH; ANISOCYTOSIS 1+; TARGET CELLS 1+; TOXIC GRAN 1+
[2018-09-25 05:19] VITALS: BP 118/82
[2018-09-25] MEDS ORDERED: FOLIC ACID 5 MG/ML IM ONE (06:00)
[2018-09-25] MEDS ORDERED: THIAMINE 200 MG in DEXTROSE 5% 50 ML IVPB ONE (06:00)
[2018-09-25 06:45] LABS: INTERNATIONAL NORMALIZED RATIO 1.19 (0.93-1.1); PROTHROMBIN TIME 12.4 Seconds (9.6-11.5)
[2018-09-25 06:55] VITALS: BP 107/74
[2018-09-25] MEDS ORDERED: DEXTROSE 4 GM TAB.CHEW PO PRN ×2 (07:00→11:30)
[2018-09-25] MEDS ORDERED: DEXTROSE 50%, 50ML SYRINGE IVPush PRN ×2 (07:00→11:30)
[2018-09-25] MEDS ORDERED: GLUCAGON 1 MG IM PRN ×2 (07:00→11:30)
[2018-09-25] MEDS ORDERED: MORPHINE SULFATE 4 MG/ML, 1ML IVPush PRN (07:00)
[2018-09-25] MEDS: LEVOTHYROXINE 137 MCG TABLET PO SCH (07:00)
[2018-09-25] MEDS ORDERED: OMNIPAQUE 350 MG/ML, 100ML BOTTLE ONE (07:09)
[2018-09-25] MEDS: morphine SULFATE 10 MG/ML, 1ML IVPush PRN ×3 (07:14→21:20)
[2018-09-25] MEDS: ONDANSETRON 2MG/ML, 2ML IVPush PRN ×2 (07:14→21:20)
[2018-09-25] MEDS ORDERED: POTASSIUM CHLORIDE 20 MEQ TAB.ER.PRT PO ONE (07:30)
[2018-09-25] MEDS: POTASSIUM CHLORIDE 20 MEQ TAB.ER.PRT PO SCH ×2 (08:00→16:51)
[2018-09-25] MEDS ORDERED: SODIUM CHLORIDE FLUSH 10ML SYR IVF SCH (09:00)
[2018-09-25] MEDS: NEUTRA PHOS K 250 MG TABLET PO SCH ×3 (09:00→20:08)
[2018-09-25] MEDS: POTASSIUM CHLORIDE 20 MEQ, MAGNESIUM SULFATE 2 GM, THIAMINE 200 MG, MVI ADULT 10 ML, FO... IV SCH ×2 (09:00→20:08)
[2018-09-25] MEDS: MULTIVITAMINS/MINERALS TABLET PO SCH (09:00)
[2018-09-25] MEDS: FOLIC ACID 1 MG TABLET PO SCH (11:30)
[2018-09-25] MEDS: SODIUM CHLORIDE FLUSH 10ML SYR IVF SCH ×2 (11:30→20:08)
[2018-09-25] MEDS: DOCUSATE 100 MG CAPSULE PO SCH ×2 (11:30→16:52)
[2018-09-25] MEDS: THIAMINE 100MG TABLET PO SCH (11:30)
[2018-09-25] MEDS: MULTIVITAMIN 1 TABLET PO SCH (11:30)
[2018-09-25 12:22] VITALS: BP 101/69
[2018-09-25] MEDS ORDERED: LIDOCAINE-MPF 1%, 5ML ONE (14:48)
[2018-09-25 16:31] LABS: CELLS COUNTED 94
[2018-09-25 17:22] LABS: CULTURE INDICATED? YES; MICROSCOPIC INDICATED
[2018-09-25 17:31] LABS: AMPHETAMINE SCREEN, URINE Negative (Negative); BARBITURATE SCREEN, URINE Negative (Negative); BENZODIAZEPINE SCREEN, URINE Negative (Negative); CANNABINOID SCREEN, URINE Negative (Negative); COCAINE SCREEN, URINE Negative (Negative); METHADONE SCREEN, URINE Negative (Negative); OPIATE SCREEN, URINE Positive (Negative)
[2018-09-25 18:23] LABS: ANION GAP 7 mmol/L (5-15); CALCIUM 7.9 mg/dL (8.5-10.1); CHLORIDE 100 mmol/L (98-107); CREATININE 0.81 mg/dL (0.55-1.02)
[2018-09-25 19:59] VITALS: BP 108/72
[2018-09-26 00:35] VITALS: BP 123/79
[2018-09-26] MEDS: POTASSIUM CHLORIDE 20 MEQ, MAGNESIUM SULFATE 2 GM, THIAMINE 200 MG, MVI ADULT 10 ML, FO... IV SCH (06:21)
[2018-09-26] MEDS: LEVOTHYROXINE 137 MCG TABLET PO SCH (06:21)
[2018-09-26 07:11] LABS: CHLORIDE 105 mmol/L (98-107)
[2018-09-26 07:16] LABS: ALANINE AMINOTRANSFERASE 46 U/L (12-78); ALBUMIN 2.2 g/dL (3.4-5.0); ALKALINE PHOSPHATASE 225 U/L (45-117); ANION GAP 8 mmol/L (5-15); BILIRUBIN,TOTAL 8.8 mg/dL (0.2-1.0); CALCIUM 7.6 mg/dL (8.5-10.1); CREATININE 0.69 mg/dL (0.55-1.02); TOTAL PROTEIN 5.6 g/dL (6.4-8.2)
[2018-09-26] MEDS: ONDANSETRON 2MG/ML, 2ML IVPush PRN ×2 (07:56→18:27)
[2018-09-26] MEDS: morphine SULFATE 10 MG/ML, 1ML IVPush PRN ×3 (07:56→22:53)
[2018-09-26] MEDS: DOCUSATE 100 MG CAPSULE PO SCH ×2 (07:57→21:07)
[2018-09-26] MEDS: MULTIVITAMIN 1 TABLET PO SCH (07:57)
[2018-09-26] MEDS: MULTIVITAMINS/MINERALS TABLET PO SCH (07:57)
[2018-09-26] MEDS: POTASSIUM CHLORIDE 20 MEQ TAB.ER.PRT PO SCH ×2 (07:57→16:37)
[2018-09-26] MEDS: THIAMINE 100MG TABLET PO SCH (07:57)
[2018-09-26] MEDS: FOLIC ACID 1 MG TABLET PO SCH (07:57)
[2018-09-26] MEDS: NEUTRA PHOS K 250 MG TABLET PO SCH ×3 (07:58→21:07)
[2018-09-26] MEDS ORDERED: POTASSIUM PHOSPHATE 44 MEQ in SODIUM CHLORIDE 0.9% 500 ML IV ONE (08:00)
[2018-09-26] MEDS: SODIUM CHLORIDE FLUSH 10ML SYR IVF SCH ×2 (08:03→21:08)
[2018-09-26 08:09] LABS: MEAN CORPUSCULAR HEMOGLOBIN 41.1 pg (27.0-34.8); MEAN CORPUSCULAR HGB CONC 33.2 g/dL (32.4-35.8); MEAN CORPUSCULAR VOLUME 123.6 fL (80-100); MEAN PLATELET VOLUME 8.1 fL (7.4-10.4); PLATELET COUNT 142 x10^3/uL (130-400); RED BLOOD COUNT 2.31 x10^6/uL (3.82-5.3); RED CELL DISTRIBUTION WIDTH 19.4 % (9.6-15.2)
[2018-09-26 08:19] VITALS: BP 93/66
[2018-09-26 08:37] LABS: BASOPHILS % (AUTO) 2 % (0-1); EOSINOPHILS # (AUTO) 0.26 x10^3/uL (0-0.4); EOSINOPHILS % (AUTO) 2 % (1-7); LYMPHOCYTES # (AUTO) 2.02 x10^3/uL (1-3.4); LYMPHOCYTES % (AUTO) 17 % (22-44); MD SCAN; MONOCYTES # (AUTO) 0.38 x10^3/uL (0.2-0.8); MONOCYTES % (AUTO) 3 % (2-9); NEUTROPHILS # (AUTO) 9.02 x10^3/uL (1.8-6.8); NEUTROPHILS % (AUTO) 76 % (42-75)
[2018-09-26] MEDS: SIMETHICONE 125 MG CHEW TAB PO SCH ×4 (09:40→21:07)
[2018-09-26] MEDS: ENOXAPARIN 40 MG/0.4 ML SQ SCH (12:56)
[2018-09-26 13:05] VITALS: BP 98/66
[2018-09-26 19:36] VITALS: BP 94/64
[2018-09-26] MEDS ORDERED: CEFDINIR 300 MG CAPSULE PO SCH (21:00)
[2018-09-27 00:52] VITALS: BP 105/73
[2018-09-27] MEDS: morphine SULFATE 10 MG/ML, 1ML IVPush PRN ×2 (03:27→06:38)
[2018-09-27] MEDS: ONDANSETRON 2MG/ML, 2ML IVPush PRN ×2 (03:28→17:12)
[2018-09-27 04:35] LABS: ALANINE AMINOTRANSFERASE 48 U/L (12-78); ALBUMIN 2.3 g/dL (3.4-5.0); ANION GAP 5 mmol/L (5-15); CALCIUM 7.5 mg/dL (8.5-10.1); CHLORIDE 107 mmol/L (98-107); CREATININE 0.68 mg/dL (0.55-1.02)
[2018-09-27 04:38] LABS: ALKALINE PHOSPHATASE 233 U/L (45-117); BILIRUBIN,TOTAL 9.7 mg/dL (0.2-1.0); TOTAL PROTEIN 5.9 g/dL (6.4-8.2)
[2018-09-27 05:03] LABS: MEAN CORPUSCULAR HEMOGLOBIN 40.4 pg (27.0-34.8); MEAN CORPUSCULAR HGB CONC 32.3 g/dL (32.4-35.8); MEAN CORPUSCULAR VOLUME 125.2 fL (80-100); MEAN PLATELET VOLUME 8.9 fL (7.4-10.4); PLATELET COUNT 147 x10^3/uL (130-400); RED BLOOD COUNT 2.34 x10^6/uL (3.82-5.3)
[2018-09-27 06:04] LABS: BASOPHILS # (AUTO) 0.35 x10^3/uL (0-0.1); BASOPHILS % (AUTO) 3 % (0-1); EOSINOPHILS # (AUTO) 0.31 x10^3/uL (0-0.4); EOSINOPHILS % (AUTO) 2 % (1-7); LYMPHOCYTES % (AUTO) 17 % (22-44); MD SCAN; MONOCYTES # (AUTO) 0.52 x10^3/uL (0.2-0.8); MONOCYTES % (AUTO) 4 % (2-9); NEUTROPHILS % (AUTO) 74 % (42-75)
[2018-09-27] MEDS: LEVOTHYROXINE 137 MCG TABLET PO SCH (06:38)
[2018-09-27 07:53] VITALS: BP 100/68
[2018-09-27] MEDS: DOCUSATE 100 MG CAPSULE PO SCH ×2 (07:53→20:39)
[2018-09-27] MEDS: CEFTRIAXONE PMX 1GM/50ML 50 ML IV SCH (08:01)
[2018-09-27] MEDS: SIMETHICONE 125 MG CHEW TAB PO SCH ×4 (08:01→20:38)
[2018-09-27] MEDS: NEUTRA PHOS K 250 MG TABLET PO SCH ×3 (08:01→20:38)
[2018-09-27] MEDS: THIAMINE 100MG TABLET PO SCH (08:02)
[2018-09-27] MEDS: MULTIVITAMINS/MINERALS TABLET PO SCH (08:02)
[2018-09-27] MEDS: SODIUM CHLORIDE FLUSH 10ML SYR IVF SCH ×2 (08:02→20:39)
[2018-09-27] MEDS: MULTIVITAMIN 1 TABLET PO SCH (08:02)
[2018-09-27] MEDS: FOLIC ACID 1 MG TABLET PO SCH (08:02)
[2018-09-27] MEDS: ENOXAPARIN 40 MG/0.4 ML SQ SCH (11:58)
[2018-09-27 14:48] VITALS: BP 110/76
[2018-09-27 19:31] VITALS: BP 95/70
[2018-09-28 00:28] VITALS: BP 113/76
[2018-09-28] MEDS: LEVOTHYROXINE 137 MCG TABLET PO SCH (05:27)
[2018-09-28 05:55] LABS: ALANINE AMINOTRANSFERASE 50 U/L (12-78); ALBUMIN 2.6 g/dL (3.4-5.0); ANION GAP 9 mmol/L (5-15); CALCIUM 8.3 mg/dL (8.5-10.1); CHLORIDE 104 mmol/L (98-107); CREATININE 0.76 mg/dL (0.55-1.02)
[2018-09-28 05:57] LABS: ALKALINE PHOSPHATASE 251 U/L (45-117); BILIRUBIN,TOTAL 9.6 mg/dL (0.2-1.0); TOTAL PROTEIN 6.5 g/dL (6.4-8.2)
[2018-09-28 06:21] LABS: MEAN CORPUSCULAR HEMOGLOBIN 40.6 pg (27.0-34.8); MEAN CORPUSCULAR HGB CONC 32.4 g/dL (32.4-35.8); MEAN CORPUSCULAR VOLUME 125.3 fL (80-100); RED BLOOD COUNT 2.66 x10^6/uL (3.82-5.3); RED CELL DISTRIBUTION WIDTH 19.4 % (9.6-15.2)
[2018-09-28 06:22] LABS: BASOPHILS # (AUTO) 0.11 x10^3/uL (0-0.1); BASOPHILS % (AUTO) 1 % (0-1); EOSINOPHILS # (AUTO) 0.24 x10^3/uL (0-0.4); EOSINOPHILS % (AUTO) 2 % (1-7); LYMPHOCYTES % (AUTO) 19 % (22-44); MD SCAN; MEAN PLATELET VOLUME 8.5 fL (7.4-10.4); MONOCYTES # (AUTO) 0.54 x10^3/uL (0.2-0.8); MONOCYTES % (AUTO) 3 % (2-9); NEUTROPHILS # (AUTO) 12.17 x10^3/uL (1.8-6.8); NEUTROPHILS % (AUTO) 76 % (42-75); PLATELET COUNT 172 x10^3/uL (130-400)
[2018-09-28] MEDS: CEFTRIAXONE PMX 1GM/50ML 50 ML IV SCH (07:53)
[2018-09-28] MEDS: NEUTRA PHOS K 250 MG TABLET PO SCH ×3 (07:53→20:43)
[2018-09-28] MEDS: SIMETHICONE 125 MG CHEW TAB PO SCH ×4 (07:53→20:42)
[2018-09-28] MEDS: FOLIC ACID 1 MG TABLET PO SCH (07:54)
[2018-09-28] MEDS: SODIUM CHLORIDE FLUSH 10ML SYR IVF SCH ×2 (07:54→20:43)
[2018-09-28] MEDS: POTASSIUM CHLORIDE 20 MEQ TAB.ER.PRT PO SCH ×2 (07:54→17:45)
[2018-09-28] MEDS: MULTIVITAMIN 1 TABLET PO SCH (07:54)
[2018-09-28] MEDS: MULTIVITAMINS/MINERALS TABLET PO SCH (07:54)
[2018-09-28] MEDS: DOCUSATE 100 MG CAPSULE PO SCH ×2 (07:54→20:43)
[2018-09-28] MEDS: THIAMINE 100MG TABLET PO SCH (07:54)
[2018-09-28 08:04] VITALS: BP 122/87
[2018-09-28] MEDS: ENOXAPARIN 40 MG/0.4 ML SQ SCH (12:00)
[2018-09-28 13:17] VITALS: BP 111/76
[2018-09-28] MEDS: POTASSIUM CHLORIDE 10 MEQ in D5%-0.45% NACL 1,000 ML IV SCH (15:50)
[2018-09-28 16:30] LABS: CLOSTRIDIUM DIFFICILE ANTIGEN POSITIVE; CLOSTRIDIUM DIFFICILE TOXIN NEGATIVE (Negative)
[2018-09-28] MEDS ORDERED: OMNIPAQUE 350 MG/ML, 100ML BOTTLE ONE (18:00)
[2018-09-28] MEDS: VANCOMYCIN 50 MG/ML ORAL SUSP PO SCH (20:43)
[2018-09-28 20:59] VITALS: BP 104/73
[2018-09-29] MEDS: VANCOMYCIN 50 MG/ML ORAL SUSP PO SCH ×4 (02:03→20:23)
[2018-09-29 02:48] VITALS: BP 110/78
[2018-09-29] MEDS: LEVOTHYROXINE 137 MCG TABLET PO SCH (05:46)
[2018-09-29 06:15] LABS: CHLORIDE 103 mmol/L (98-107)
[2018-09-29 06:21] LABS: ALANINE AMINOTRANSFERASE 42 U/L (12-78); ALBUMIN 2.2 g/dL (3.4-5.0); ALKALINE PHOSPHATASE 220 U/L (45-117); ANION GAP 10 mmol/L (5-15); BILIRUBIN,TOTAL 8.8 mg/dL (0.2-1.0); CREATININE 0.62 mg/dL (0.55-1.02); TOTAL PROTEIN 5.8 g/dL (6.4-8.2)
[2018-09-29 07:51] VITALS: BP 106/72
[2018-09-29] MEDS: CEFTRIAXONE PMX 1GM/50ML 50 ML IV SCH (07:52)
[2018-09-29] MEDS: FOLIC ACID 1 MG TABLET PO SCH (07:53)
[2018-09-29] MEDS: SIMETHICONE 125 MG CHEW TAB PO SCH ×4 (07:53→20:24)
[2018-09-29] MEDS: POTASSIUM CHLORIDE 20 MEQ TAB.ER.PRT PO SCH ×2 (07:53→16:25)
[2018-09-29] MEDS: MULTIVITAMINS/MINERALS TABLET PO SCH (07:53)
[2018-09-29] MEDS: NEUTRA PHOS K 250 MG TABLET PO SCH ×3 (07:53→20:24)
[2018-09-29] MEDS: MULTIVITAMIN 1 TABLET PO SCH (07:53)
[2018-09-29] MEDS: DOCUSATE 100 MG CAPSULE PO SCH ×2 (07:53→20:24)
[2018-09-29] MEDS: THIAMINE 100MG TABLET PO SCH (07:53)
[2018-09-29] MEDS: SODIUM CHLORIDE FLUSH 10ML SYR IVF SCH ×2 (07:54→20:23)
[2018-09-29 09:29] LABS: MEAN CORPUSCULAR HEMOGLOBIN 40.5 pg (27.0-34.8); MEAN CORPUSCULAR HGB CONC 32.4 g/dL (32.4-35.8); MEAN CORPUSCULAR VOLUME 124.9 fL (80-100); PLATELET COUNT 226 x10^3/uL (130-400); RED BLOOD COUNT 2.48 x10^6/uL (3.82-5.3); RED CELL DISTRIBUTION WIDTH 19.5 % (9.6-15.2)
[2018-09-29 09:32] LABS: BASOPHILS # (AUTO) 0.15 x10^3/uL (0-0.1); BASOPHILS % (AUTO) 1 % (0-1); EOSINOPHILS # (AUTO) 0.15 x10^3/uL (0-0.4); EOSINOPHILS % (AUTO) 1 % (1-7); LYMPHOCYTES # (AUTO) 1.66 x10^3/uL (1-3.4); LYMPHOCYTES % (AUTO) 11 % (22-44); MD SCAN; MONOCYTES % (AUTO) 5 % (2-9); NEUTROPHILS # (AUTO) 12.25 x10^3/uL (1.8-6.8); NEUTROPHILS % (AUTO) 82 % (42-75)
[2018-09-29] MEDS: ENOXAPARIN 40 MG/0.4 ML SQ SCH (12:12)
[2018-09-29] MEDS: morphine SULFATE 10 MG/ML, 1ML IVPush PRN ×3 (12:12→20:24)
[2018-09-29 12:14] VITALS: BP 114/81
[2018-09-29] MEDS: POTASSIUM CHLORIDE 10 MEQ in D5%-0.45% NACL 1,000 ML IV SCH (14:35)
[2018-09-29 20:18] VITALS: BP 118/81
[2018-09-30 00:51] VITALS: BP 106/64
[2018-09-30] MEDS: morphine SULFATE 10 MG/ML, 1ML IVPush PRN ×5 (00:53→20:29)
[2018-09-30] MEDS: VANCOMYCIN 50 MG/ML ORAL SUSP PO SCH ×4 (02:01→20:29)
[2018-09-30 05:20] LABS: ALANINE AMINOTRANSFERASE 38 U/L (12-78); ALBUMIN 2.2 g/dL (3.4-5.0); ANION GAP 6 mmol/L (5-15); CALCIUM 7.9 mg/dL (8.5-10.1); CHLORIDE 106 mmol/L (98-107); CREATININE 0.64 mg/dL (0.55-1.02)
[2018-09-30 05:22] LABS: ALKALINE PHOSPHATASE 207 U/L (45-117); BILIRUBIN,TOTAL 8.2 mg/dL (0.2-1.0); TOTAL PROTEIN 5.6 g/dL (6.4-8.2)
[2018-09-30] MEDS: LEVOTHYROXINE 137 MCG TABLET PO SCH (06:02)
[2018-09-30 06:15] LABS: MEAN CORPUSCULAR HEMOGLOBIN 41.6 pg (27.0-34.8); MEAN CORPUSCULAR HGB CONC 32.5 g/dL (32.4-35.8); MEAN CORPUSCULAR VOLUME 127.8 fL (80-100); MEAN PLATELET VOLUME 8.1 fL (7.4-10.4); PLATELET COUNT 175 x10^3/uL (130-400); RED BLOOD COUNT 2.36 x10^6/uL (3.82-5.3)
[2018-09-30 06:16] LABS: MD YES
[2018-09-30 06:18] LABS: ANISOCYTOSIS 1+; BAND#(MANUAL) 0.79 x10^3/uL; BANDS%(MANUAL) 6 % (0-7); BASOS#(MANUAL) 0.13 x10^3/uL (0-0.1); BASOS% (MANUAL) 1 % (0-1); EOS#(MANUAL) 0.39 x10^3/uL (0.0-0.4); EOS% (MANUAL) 3 % (1-7); LYMPH#(MANUAL) 1.57 x10^3/uL (1-3.4); LYMPHS% (MANUAL) 12 % (22-44); MONOS#(MANUAL) 0.26 x10^3/uL (0.3-2.7); MONOS% (MANUAL) 2 % (2-9); SEG#(MANUAL) 9.96 x10^3/uL (1.8-6.8); SEGS% (MANUAL) 76 % (42-75)
[2018-09-30 06:19] LABS: <PLATELET ESTIMATE> ADEQUATE; <PLT MORPHOLOGY> NORMAL PLT MORPH; POLYCHROMASIA 1+
[2018-09-30 07:48] VITALS: BP 92/57
[2018-09-30] MEDS: SIMETHICONE 125 MG CHEW TAB PO SCH ×4 (08:38→20:28)
[2018-09-30] MEDS: SULFAMETH./TRIMETHOPRIM DS 800MG/160MG TABLET PO SCH ×2 (08:38→20:28)
[2018-09-30] MEDS: POTASSIUM CHLORIDE 20 MEQ TAB.ER.PRT PO SCH ×2 (08:38→15:15)
[2018-09-30] MEDS: NEUTRA PHOS K 250 MG TABLET PO SCH ×3 (08:38→20:28)
[2018-09-30] MEDS: FOLIC ACID 1 MG TABLET PO SCH (08:39)
[2018-09-30] MEDS: MULTIVITAMINS/MINERALS TABLET PO SCH (08:39)
[2018-09-30] MEDS: THIAMINE 100MG TABLET PO SCH (08:39)
[2018-09-30] MEDS: MULTIVITAMIN 1 TABLET PO SCH (08:39)
[2018-09-30] MEDS: SODIUM CHLORIDE FLUSH 10ML SYR IVF SCH ×2 (08:39→20:29)
[2018-09-30] MEDS: DOCUSATE 100 MG CAPSULE PO SCH ×2 (08:39→20:29)
[2018-09-30] MEDS ORDERED: CEFDINIR 300 MG CAPSULE PO SCH (09:00)
[2018-09-30] MEDS: POTASSIUM CHLORIDE 10 MEQ in D5%-0.45% NACL 1,000 ML IV SCH (11:33)
[2018-09-30 13:00] VITALS: BP 99/62
[2018-09-30] MEDS: ENOXAPARIN 40 MG/0.4 ML SQ SCH (15:29)
[2018-09-30 20:33] VITALS: BP 113/80
[2018-10-01 01:51] VITALS: BP 101/70
[2018-10-01] MEDS: VANCOMYCIN 50 MG/ML ORAL SUSP PO SCH ×4 (01:52→20:45)
[2018-10-01] MEDS: morphine SULFATE 10 MG/ML, 1ML IVPush PRN ×5 (01:53→20:45)
[2018-10-01 05:08] LABS: ALBUMIN 2.2 g/dL (3.4-5.0); ANION GAP 6 mmol/L (5-15); CALCIUM 8.1 mg/dL (8.5-10.1); CHLORIDE 105 mmol/L (98-107)
[2018-10-01 05:13] LABS: ALANINE AMINOTRANSFERASE 35 U/L (12-78); ALKALINE PHOSPHATASE 200 U/L (45-117); CREATININE 0.64 mg/dL (0.55-1.02); TOTAL PROTEIN 5.5 g/dL (6.4-8.2)
[2018-10-01] MEDS: LEVOTHYROXINE 137 MCG TABLET PO SCH (05:50)
[2018-10-01] MEDS: POTASSIUM CHLORIDE 10 MEQ in D5%-0.45% NACL 1,000 ML IV SCH (05:50)
[2018-10-01 06:16] LABS: MEAN CORPUSCULAR HEMOGLOBIN 41.7 pg (27.0-34.8); MEAN CORPUSCULAR HGB CONC 32.7 g/dL (32.4-35.8); MEAN CORPUSCULAR VOLUME 127.4 fL (80-100); MEAN PLATELET VOLUME 8.1 fL (7.4-10.4); PLATELET COUNT 174 x10^3/uL (130-400); RED BLOOD COUNT 2.28 x10^6/uL (3.82-5.3); RED CELL DISTRIBUTION WIDTH 18.7 % (9.6-15.2)
[2018-10-01 06:17] LABS: MD YES
[2018-10-01 06:22] LABS: ANISOCYTOSIS 1+; BAND#(MANUAL) 0.95 x10^3/uL; BANDS%(MANUAL) 9 % (0-7); BASOS#(MANUAL) 0.11 x10^3/uL (0-0.1); BASOS% (MANUAL) 1 % (0-1); EOS#(MANUAL) 0.42 x10^3/uL (0.0-0.4); EOS% (MANUAL) 4 % (1-7); LYMPH#(MANUAL) 1.17 x10^3/uL (1-3.4); LYMPHS% (MANUAL) 11 % (22-44); METAMYELOCYTES# (MANUAL) 0.11 x10^3/uL (0-0); METAMYELOCYTES% (MANUAL) 1 % (0-1); MONOS#(MANUAL) 0.53 x10^3/uL (0.3-2.7); MONOS% (MANUAL) 5 % (2-9); POLYCHROMASIA 1+; SEG#(MANUAL) 7.31 x10^3/uL (1.8-6.8); SEGS% (MANUAL) 69 % (42-75)
[2018-10-01 06:23] LABS: <PLATELET ESTIMATE> ADEQUATE; <PLT MORPHOLOGY> NORMAL PLT MORPH
[2018-10-01] MEDS: SIMETHICONE 125 MG CHEW TAB PO SCH ×4 (06:24→20:46)
[2018-10-01] MEDS: SODIUM CHLORIDE FLUSH 10ML SYR IVF SCH ×2 (07:29→20:46)
[2018-10-01] MEDS: DOCUSATE 100 MG CAPSULE PO SCH ×2 (07:29→20:45)
[2018-10-01 08:08] VITALS: BP 92/60
[2018-10-01] MEDS: ONDANSETRON 2MG/ML, 2ML IVPush PRN (08:27)
[2018-10-01] MEDS: MULTIVITAMIN 1 TABLET PO SCH (09:05)
[2018-10-01] MEDS: SULFAMETH./TRIMETHOPRIM DS 800MG/160MG TABLET PO SCH ×2 (09:05→20:46)
[2018-10-01] MEDS: FOLIC ACID 1 MG TABLET PO SCH (09:05)
[2018-10-01] MEDS: MULTIVITAMINS/MINERALS TABLET PO SCH (09:05)
[2018-10-01] MEDS: POTASSIUM CHLORIDE 20 MEQ TAB.ER.PRT PO SCH ×2 (09:05→15:49)
[2018-10-01] MEDS: THIAMINE 100MG TABLET PO SCH (09:05)
[2018-10-01] MEDS: NEUTRA PHOS K 250 MG TABLET PO SCH ×3 (09:05→20:46)
[2018-10-01] MEDS ORDERED: MAGNESIUM SULFATE PMX 2GM/50ML 50 ML IV ONE (10:00)
[2018-10-01] MEDS ORDERED: PROMETHAZINE 25 MG/ML, 1ML IM PRN (10:00)
[2018-10-01 14:13] VITALS: BP_SYST 111; BP_SYST 92; BP_DIAS 61; BP_DIAS 66
[2018-10-01] MEDS: ENOXAPARIN 40 MG/0.4 ML SQ SCH (15:49)
[2018-10-01 19:25] VITALS: BP 103/63
[2018-10-02 02:46] VITALS: BP 92/59
[2018-10-02] MEDS: ONDANSETRON 2MG/ML, 2ML IVPush PRN ×4 (03:05→21:26)
[2018-10-02] MEDS: POTASSIUM CHLORIDE 10 MEQ in D5%-0.45% NACL 1,000 ML IV SCH (03:06)
[2018-10-02] MEDS: morphine SULFATE 10 MG/ML, 1ML IVPush PRN ×2 (03:06→09:08)
[2018-10-02] MEDS: VANCOMYCIN 50 MG/ML ORAL SUSP PO SCH ×4 (03:06→21:24)
[2018-10-02] MEDS: LEVOTHYROXINE 137 MCG TABLET PO SCH (06:00)
[2018-10-02 06:02] LABS: MEAN CORPUSCULAR HEMOGLOBIN 40.7 pg (27.0-34.8); MEAN CORPUSCULAR HGB CONC 32.5 g/dL (32.4-35.8); MEAN CORPUSCULAR VOLUME 125.2 fL (80-100); RED BLOOD COUNT 2.27 x10^6/uL (3.82-5.3); RED CELL DISTRIBUTION WIDTH 18.7 % (9.6-15.2)
[2018-10-02 06:09] LABS: CHLORIDE 107 mmol/L (98-107)
[2018-10-02 06:15] LABS: ALANINE AMINOTRANSFERASE 34 U/L (12-78); ALBUMIN 2.1 g/dL (3.4-5.0); ALKALINE PHOSPHATASE 185 U/L (45-117); ANION GAP 8 mmol/L (5-15); BILIRUBIN,TOTAL 8.6 mg/dL (0.2-1.0); CALCIUM 7.9 mg/dL (8.5-10.1); CREATININE 0.65 mg/dL (0.55-1.02); TOTAL PROTEIN 5.5 g/dL (6.4-8.2)
[2018-10-02 07:21] LABS: BASOPHILS # (AUTO) 0.09 x10^3/uL (0-0.1); BASOPHILS % (AUTO) 1 % (0-1); EOSINOPHILS # (AUTO) 0.19 x10^3/uL (0-0.4); EOSINOPHILS % (AUTO) 2 % (1-7); LYMPHOCYTES # (AUTO) 1.89 x10^3/uL (1-3.4); LYMPHOCYTES % (AUTO) 14 % (22-44); MD SCAN; MEAN PLATELET VOLUME 7.8 fL (7.4-10.4); MONOCYTES # (AUTO) 0.67 x10^3/uL (0.2-0.8); MONOCYTES % (AUTO) 5 % (2-9); NEUTROPHILS # (AUTO) 10.46 x10^3/uL (1.8-6.8); NEUTROPHILS % (AUTO) 79 % (42-75); PLATELET COUNT 197 x10^3/uL (130-400)
[2018-10-02 07:47] VITALS: BP 99/65
[2018-10-02] MEDS ORDERED: POTASSIUM CHLORIDE 20 MEQ TAB.ER.PRT PO SCH (09:00)
[2018-10-02] MEDS: DOCUSATE 100 MG CAPSULE PO SCH ×2 (09:00→20:13)
[2018-10-02] MEDS: MULTIVITAMIN 1 TABLET PO SCH (09:00)
[2018-10-02] MEDS: THIAMINE 100MG TABLET PO SCH (09:08)
[2018-10-02] MEDS: NEUTRA PHOS K 250 MG TABLET PO SCH ×3 (09:08→20:13)
[2018-10-02] MEDS: SULFAMETH./TRIMETHOPRIM DS 800MG/160MG TABLET PO SCH ×2 (09:08→20:13)
[2018-10-02] MEDS: FOLIC ACID 1 MG TABLET PO SCH (09:09)
[2018-10-02] MEDS: SIMETHICONE 125 MG CHEW TAB PO SCH ×4 (09:09→21:24)
[2018-10-02] MEDS: MULTIVITAMINS/MINERALS TABLET PO SCH (09:09)
[2018-10-02] MEDS: SODIUM CHLORIDE FLUSH 10ML SYR IVF SCH ×2 (09:09→20:13)
[2018-10-02 13:30] VITALS: BP 105/72
[2018-10-02] MEDS: FUROSEMIDE 20 MG TABLET PO SCH (15:36)
[2018-10-02] MEDS: ENOXAPARIN 40 MG/0.4 ML SQ SCH (15:37)
[2018-10-02 19:06] VITALS: BP 99/65
[2018-10-03 01:24] VITALS: BP 93/60
[2018-10-03] MEDS: VANCOMYCIN 50 MG/ML ORAL SUSP PO SCH ×2 (03:49→09:56)
[2018-10-03 05:26] LABS: MEAN CORPUSCULAR HEMOGLOBIN 39.9 pg (27.0-34.8); MEAN CORPUSCULAR HGB CONC 32.1 g/dL (32.4-35.8); MEAN CORPUSCULAR VOLUME 124.5 fL (80-100); MEAN PLATELET VOLUME 8.2 fL (7.4-10.4); PLATELET COUNT 201 x10^3/uL (130-400); RED BLOOD COUNT 2.32 x10^6/uL (3.82-5.3); RED CELL DISTRIBUTION WIDTH 17.7 % (9.6-15.2)
[2018-10-03 05:35] LABS: ALBUMIN 1.9 g/dL (3.4-5.0); ANION GAP 9 mmol/L (5-15); CALCIUM 8.1 mg/dL (8.5-10.1); CHLORIDE 106 mmol/L (98-107)
[2018-10-03 05:40] LABS: ALANINE AMINOTRANSFERASE 29 U/L (12-78); ALKALINE PHOSPHATASE 177 U/L (45-117); BILIRUBIN,TOTAL 8.3 mg/dL (0.2-1.0); TOTAL PROTEIN 5.1 g/dL (6.4-8.2)
[2018-10-03 06:05] LABS: BASOPHILS # (AUTO) 0.17 x10^3/uL (0-0.1); BASOPHILS % (AUTO) 1 % (0-1); EOSINOPHILS % (AUTO) 1 % (1-7); LYMPHOCYTES # (AUTO) 2.77 x10^3/uL (1-3.4); LYMPHOCYTES % (AUTO) 20 % (22-44); MD SCAN; MONOCYTES # (AUTO) 0.76 x10^3/uL (0.2-0.8); MONOCYTES % (AUTO) 6 % (2-9); NEUTROPHILS # (AUTO) 9.94 x10^3/uL (1.8-6.8); NEUTROPHILS % (AUTO) 72 % (42-75)
[2018-10-03] MEDS: LEVOTHYROXINE 137 MCG TABLET PO SCH (06:30)
[2018-10-03 08:20] VITALS: BP 100/69
[2018-10-03] MEDS: SIMETHICONE 125 MG CHEW TAB PO SCH ×2 (08:55→12:32)
[2018-10-03] MEDS: FUROSEMIDE 20 MG TABLET PO SCH (08:55)
[2018-10-03] MEDS: SODIUM CHLORIDE FLUSH 10ML SYR IVF SCH (08:56)
[2018-10-03] MEDS: FOLIC ACID 1 MG TABLET PO SCH (08:56)
[2018-10-03] MEDS: MULTIVITAMINS/MINERALS TABLET PO SCH (08:58)
[2018-10-03] MEDS: NEUTRA PHOS K 250 MG TABLET PO SCH (08:58)
[2018-10-03] MEDS: THIAMINE 100MG TABLET PO SCH (08:58)
[2018-10-03] MEDS: SULFAMETH./TRIMETHOPRIM DS 800MG/160MG TABLET PO SCH (08:58)
[2018-10-03] MEDS ORDERED: POTASSIUM CHLORIDE 20 MEQ TAB.ER.PRT PO SCH (09:00)
[2018-10-03 13:25] VITALS: BP 101/70
[2018-10-03] MEDS ORDERED: MULT-484 PO (13:28)
[2018-10-03] MEDS ORDERED: VANC1VIA3 PO (13:28)
[2018-10-03] MEDS ORDERED: LEVO137T2 PO (13:28)
[2018-10-03] MEDS ORDERED: THIA100T67 PO (13:28)
[2018-10-03] MEDS ORDERED: POTA20TA6 PO (13:28)
[2018-10-03] MEDS ORDERED: FOLI-17 PO (13:28)
[2018-10-03] MEDS ORDERED: FURO20TA3 PO (13:28)
== END 2018-10-03 15:56 | disposition home or self-care (01) | DRG 432 ==
LOC: ED 03:14 → EDIP 04:05 → 3NE 05:39
PROVIDERS: ADMIT Family Medicine; ATTEND Family Medicine
PROC: 0W9G3ZZ Drainage of Peritoneal Cavity, Percutaneous Approach (ICD-10-PCS; principal; 2018-09-25)
DX: K70.31 Alcoholic cirrhosis of liver with ascites (principal); K85.90 Acute pancreatitis without necrosis or infection, unspecified; N39.0 Urinary tract infection, site not specified; A04.72 Enterocolitis due to Clostridium difficile, not specified as recurrent; E87.1 Hypo-osmolality and hyponatremia; E87.6 Hypokalemia; E83.39 Other disorders of phosphorus metabolism; E16.2 Hypoglycemia, unspecified; K75.81 Nonalcoholic steatohepatitis (NASH); K72.90 Hepatic failure, unspecified without coma; N20.0 Calculus of kidney; K59.00 Constipation, unspecified; D50.9 Iron deficiency anemia, unspecified; E83.42 Hypomagnesemia; D72.825 Bandemia; F10.20 Alcohol dependence, uncomplicated; B96.20 Unspecified Escherichia coli [E. coli] as the cause of diseases classified elsewhere; D53.9 Nutritional anemia, unspecified; E03.4 Atrophy of thyroid (acquired); I10 Essential (primary) hypertension; Z80.3 Family history of malignant neoplasm of breast; Z83.3 Family history of diabetes mellitus; Z90.49 Acquired absence of other specified parts of digestive tract
CPT/HCPCS: 36415; 99285; J3370; J7042; 49083; 74177; 74178; 74181; 76700; 80048; 80053; 80074; 80307; 81001; 82105; 82248; 82607; 82962; 83605; 83690; 83735; 84100; 84439; 84443; 85025; 85610; 87040; 87070; 87075; 87077; 87086; 87186; 87205; 87324; 87493; 89051; 93970; 96365; G0378; J0696; J1650; J2405; J3411; J3475; J3480; Q9967; J2270; J7040

== ENCOUNTER 2018-10-05 16:16 | Inpatient (IN) | payer BC ==
[~2018-10-05] VITALS: Ht 172.7 cm; Wt 77.2 kg
[~2018-10-05 16:16] MED LIST changes: +FURO20TA3 PO; +LEVO137T2 PO; +MULT-484 PO; +POTA20TA6 PO; +VANC1VIA3 PO
--- NOTE | 2018-10-05 16:43 | NUR ---
PT WITH C/O ABD PAIN AND DISTENTION, STATES SHE WAS DISCHARGED ON SATURDAY WITH A DIAGNOSIS OF CDIFF AND SYMTOMS HAVE NOT IMPROVED. PT STATES PAIN IN 12/16, DENIES CP, SOB, TRAUMA. PT ON NIBP, CONT PULSE OX.
[2018-10-05] MEDS ORDERED: SODIUM CHLORIDE FLUSH 10ML SYR IVF ONE (17:00)
--- NOTE | 2018-10-05 17:44 | NUR ---
UA COLLECTED AND SENT TO LAB. PT GIVEN WARM BLANKET, IS AT BEDSIDE. NO OTHER NEEDS REPORTED AT THIS TIME
[2018-10-05 17:50] LABS: INTERNATIONAL NORMALIZED RATIO 1.39 (0.93-1.1); PROTHROMBIN TIME 14.4 Seconds (9.6-11.5)
[2018-10-05 17:52] LABS: ALANINE AMINOTRANSFERASE 39 U/L (12-78); ALBUMIN 2.6 g/dL (3.4-5.0); ANION GAP 10 mmol/L (5-15); CALCIUM 8.7 mg/dL (8.5-10.1); CHLORIDE 99 mmol/L (98-107); CREATININE 0.78 mg/dL (0.55-1.02)
[2018-10-05 17:56] LABS: ALKALINE PHOSPHATASE 251 U/L (45-117); BILIRUBIN,TOTAL 11.2 mg/dL (0.2-1.0); TOTAL PROTEIN 7.2 g/dL (6.4-8.2)
[2018-10-05 18:18] LABS: MICROSCOPIC INDICATED
[2018-10-05 18:23] LABS: CULTURE INDICATED? YES
--- NOTE | 2018-10-05 18:52 | NUR ---
REPORT GIVEN TO NADIA BEAN
--- NOTE | 2018-10-05 18:57 | NUR ---
PT RESTING CALMLY, DENIES NEEDS, MONITORS IN PLACE, CALL LIGHT WITHIN REACH. AWAITING LAB RESULTS
[2018-10-05 19:18] LABS: MEAN CORPUSCULAR HEMOGLOBIN 39.7 pg (27.0-34.8); MEAN CORPUSCULAR HGB CONC 32.5 g/dL (32.4-35.8); MEAN CORPUSCULAR VOLUME 122.1 fL (80-100); MEAN PLATELET VOLUME 9.9 fL (7.4-10.4); PLATELET COUNT 244 x10^3/uL (130-400); RED BLOOD COUNT 2.96 x10^6/uL (3.82-5.3); RED CELL DISTRIBUTION WIDTH 18.2 % (9.6-15.2)
[2018-10-05 19:19] LABS: MD YES
[2018-10-05 19:22] LABS: LYMPH#(MANUAL) 3.15 x10^3/uL (1-3.4); LYMPHS% (MANUAL) 18 % (22-44); MONOS% (MANUAL) 4 % (2-9); SEG#(MANUAL) 13.65 x10^3/uL (1.8-6.8); SEGS% (MANUAL) 78 % (42-75)
[2018-10-05 19:23] LABS: ANISOCYTOSIS 1+; PMNS WITH VACUOLES 1+; TOXIC GRAN 1+
[2018-10-05 19:24] LABS: <PLATELET ESTIMATE> ADEQUATE; LARGE PLATELETS 1+
[2018-10-05] MEDS ORDERED: SODIUM CHLORIDE FLUSH 10ML SYR IVF PRN (19:30)
[2018-10-05] MEDS ORDERED: FUROSEMIDE 20 MG/2 ML IV ONE (20:00)
[2018-10-05] MEDS ORDERED: CEFTRIAXONE PMX 1GM/50ML 50 ML IV SCH (20:00)
[2018-10-05 21:02] VITALS: BP 117/87
[2018-10-05] MEDS: VANCOMYCIN 50 MG/ML ORAL SUSP PO SCH (21:29)
[2018-10-05 21:30] VITALS: BP 107/77
[2018-10-05] MEDS: OXYcodone IR 5MG TABLET PO PRN (21:48)
[2018-10-06] MEDS: VANCOMYCIN 50 MG/ML ORAL SUSP PO SCH ×4 (03:05→21:05)
[2018-10-06] MEDS: OXYcodone IR 5MG TABLET PO PRN ×4 (03:05→20:02)
[2018-10-06 04:34] VITALS: BP 97/60
[2018-10-06 04:37] LABS: CLOSTRIDIUM DIFFICILE ANTIGEN NEGATIVE; CLOSTRIDIUM DIFFICILE TOXIN NEGATIVE (Negative)
[2018-10-06] MEDS: LEVOTHYROXINE 137 MCG TABLET PO SCH (05:09)
[2018-10-06 05:27] LABS: INTERNATIONAL NORMALIZED RATIO 1.55 (0.93-1.1)
[2018-10-06 05:32] LABS: MEAN CORPUSCULAR HGB CONC 32.7 g/dL (32.4-35.8); MEAN CORPUSCULAR VOLUME 122.2 fL (80-100); MEAN PLATELET VOLUME 10.1 fL (7.4-10.4); PLATELET COUNT 159 x10^3/uL (130-400); RED BLOOD COUNT 2.53 x10^6/uL (3.82-5.3); RED CELL DISTRIBUTION WIDTH 18.3 % (9.6-15.2)
[2018-10-06 05:35] LABS: ALANINE AMINOTRANSFERASE 28 U/L (12-78); ANION GAP 8 mmol/L (5-15); BILIRUBIN, DIRECT 7.2 mg/dL (0.1-0.2); CHLORIDE 103 mmol/L (98-107); CREATININE 0.57 mg/dL (0.55-1.02)
[2018-10-06 05:37] LABS: ALKALINE PHOSPHATASE 185 U/L (45-117); BILIRUBIN,INDIRECT 1.2 mg/dL (0.0-2.0); BILIRUBIN,TOTAL 8.4 mg/dL (0.2-1.0); TOTAL PROTEIN 5.5 g/dL (6.4-8.2)
[2018-10-06 06:35] LABS: MD YES
[2018-10-06 06:37] LABS: BAND#(MANUAL) 1.13 x10^3/uL; BANDS%(MANUAL) 7 % (0-7); BASOS#(MANUAL) 0.16 x10^3/uL (0-0.1); BASOS% (MANUAL) 1 % (0-1); EOS#(MANUAL) 0.16 x10^3/uL (0.0-0.4); EOS% (MANUAL) 1 % (1-7); LYMPH#(MANUAL) 2.74 x10^3/uL (1-3.4); LYMPHS% (MANUAL) 17 % (22-44); MONOS#(MANUAL) 0.48 x10^3/uL (0.3-2.7); MONOS% (MANUAL) 3 % (2-9); MYELOCYTES# (MANUAL) 0.16 x10^3/uL (0-0); MYELOCYTES% (MANUAL) 1 % (0-0); SEG#(MANUAL) 11.27 x10^3/uL (1.8-6.8); SEGS% (MANUAL) 70 % (42-75)
[2018-10-06 06:39] LABS: <PLATELET ESTIMATE> ADEQUATE; <PLT MORPHOLOGY> NORMAL PLT MORPH; ANISOCYTOSIS 1+
[2018-10-06 06:57] VITALS: BP 97/66
[2018-10-06] MEDS: THIAMINE 100MG TABLET PO SCH (07:50)
[2018-10-06] MEDS: FUROSEMIDE 20 MG TABLET PO SCH ×2 (07:50→17:49)
[2018-10-06] MEDS: FOLIC ACID 1 MG TABLET PO SCH (07:50)
[2018-10-06] MEDS: MULTIVITAMINS/MINERALS TABLET PO SCH (07:52)
[2018-10-06] MEDS ORDERED: POTASSIUM CHLORIDE 20 MEQ TAB.ER.PRT PO SCH (09:00)
[2018-10-06 13:45] VITALS: BP 107/76
[2018-10-06] MEDS ORDERED: POTASSIUM CHLORIDE 40 MEQ in SODIUM CHLORIDE 0.9% 500 ML IV ONE (16:30)
[2018-10-06] MEDS ORDERED: POTASSIUM CHLORIDE 20 MEQ TAB.ER.PRT PO ONE (16:30)
[2018-10-06] MEDS ORDERED: LIDOCAINE-MPF 1%, 5ML ONE (16:46)
[2018-10-06] MEDS: CEFTRIAXONE PMX 1GM/50ML 50 ML IV SCH (17:49)
[2018-10-06 18:21] LABS: CELLS COUNTED 13
[2018-10-06 18:26] VITALS: BP 103/70
[2018-10-07 01:57] VITALS: BP 96/64
[2018-10-07] MEDS: OXYcodone IR 5MG TABLET PO PRN ×4 (02:21→20:47)
[2018-10-07] MEDS: ONDANSETRON 2MG/ML, 2ML IVPush PRN ×2 (02:21→06:28)
[2018-10-07] MEDS: VANCOMYCIN 50 MG/ML ORAL SUSP PO SCH ×4 (03:35→21:43)
[2018-10-07] MEDS: LEVOTHYROXINE 137 MCG TABLET PO SCH (05:19)
[2018-10-07 05:28] LABS: MEAN CORPUSCULAR HEMOGLOBIN 38.9 pg (27.0-34.8); MEAN CORPUSCULAR HGB CONC 32.3 g/dL (32.4-35.8); MEAN CORPUSCULAR VOLUME 120.3 fL (80-100); MEAN PLATELET VOLUME 8.2 fL (7.4-10.4); PLATELET COUNT 182 x10^3/uL (130-400); RED CELL DISTRIBUTION WIDTH 18.5 % (9.6-15.2)
[2018-10-07 05:40] LABS: ALBUMIN 1.7 g/dL (3.4-5.0); ANION GAP 7 mmol/L (5-15); CALCIUM 7.9 mg/dL (8.5-10.1); CHLORIDE 105 mmol/L (98-107)
[2018-10-07 05:43] LABS: ALANINE AMINOTRANSFERASE 23 U/L (12-78); ALKALINE PHOSPHATASE 166 U/L (45-117); BILIRUBIN,TOTAL 7.5 mg/dL (0.2-1.0); CREATININE 0.65 mg/dL (0.55-1.02)
[2018-10-07 06:12] LABS: BASOPHILS # (AUTO) 0.05 x10^3/uL (0-0.1); BASOPHILS % (AUTO) 0 % (0-1); EOSINOPHILS # (AUTO) 0.21 x10^3/uL (0-0.4); EOSINOPHILS % (AUTO) 2 % (1-7); LYMPHOCYTES # (AUTO) 1.99 x10^3/uL (1-3.4); LYMPHOCYTES % (AUTO) 15 % (22-44); MD SCAN; MONOCYTES # (AUTO) 0.53 x10^3/uL (0.2-0.8); MONOCYTES % (AUTO) 4 % (2-9); NEUTROPHILS % (AUTO) 79 % (42-75)
[2018-10-07 07:35] VITALS: BP 95/60
[2018-10-07 08:30] VITALS: BP 98/67
[2018-10-07] MEDS: FOLIC ACID 1 MG TABLET PO SCH (08:43)
[2018-10-07] MEDS: MULTIVITAMINS/MINERALS TABLET PO SCH (08:43)
[2018-10-07] MEDS: THIAMINE 100MG TABLET PO SCH (08:43)
[2018-10-07] MEDS: FUROSEMIDE 20 MG TABLET PO SCH ×2 (08:45→16:51)
[2018-10-07] MEDS: SPIRONOLACTONE 50 MG TABLET PO SCH ×2 (09:00→20:46)
[2018-10-07] MEDS ORDERED: SPIRONOLACTONE 25 MG TABLET ONE ×3 (09:17→20:43)
[2018-10-07 13:25] VITALS: BP 102/69
[2018-10-07] MEDS: CEFTRIAXONE PMX 1GM/50ML 50 ML IV SCH (16:51)
[2018-10-07 16:55] VITALS: BP 101/68
[2018-10-07 20:03] VITALS: BP 97/60
[2018-10-08 01:36] VITALS: BP 94/62
[2018-10-08] MEDS: OXYcodone IR 5MG TABLET PO PRN ×4 (01:45→14:55)
[2018-10-08] MEDS: VANCOMYCIN 50 MG/ML ORAL SUSP PO SCH ×3 (03:52→14:41)
[2018-10-08 05:25] LABS: ALANINE AMINOTRANSFERASE 27 U/L (12-78); ALBUMIN 1.9 g/dL (3.4-5.0); ANION GAP 7 mmol/L (5-15); CALCIUM 8.2 mg/dL (8.5-10.1); CHLORIDE 103 mmol/L (98-107)
[2018-10-08 05:28] LABS: ALKALINE PHOSPHATASE 183 U/L (45-117); BILIRUBIN,TOTAL 8.2 mg/dL (0.2-1.0); CREATININE 0.77 mg/dL (0.55-1.02); TOTAL PROTEIN 5.4 g/dL (6.4-8.2)
[2018-10-08] MEDS: LEVOTHYROXINE 137 MCG TABLET PO SCH (06:19)
[2018-10-08 06:52] LABS: MEAN PLATELET VOLUME 7.2 fL (7.4-10.4); PLATELET COUNT 139 x10^3/uL (130-400)
[2018-10-08 06:53] LABS: MEAN CORPUSCULAR HEMOGLOBIN 39.8 pg (27.0-34.8); MEAN CORPUSCULAR HGB CONC 32.9 g/dL (32.4-35.8); RED BLOOD COUNT 2.53 x10^6/uL (3.82-5.3); RED CELL DISTRIBUTION WIDTH 18.7 % (9.6-15.2)
[2018-10-08 06:58] LABS: BASOPHILS # (AUTO) 0.01 x10^3/uL (0-0.1); BASOPHILS % (AUTO) 0 % (0-1); EOSINOPHILS # (AUTO) 0.22 x10^3/uL (0-0.4); EOSINOPHILS % (AUTO) 2 % (1-7); LYMPHOCYTES % (AUTO) 14 % (22-44); MD SCAN; MONOCYTES # (AUTO) 0.61 x10^3/uL (0.2-0.8); MONOCYTES % (AUTO) 4 % (2-9); NEUTROPHILS # (AUTO) 11.53 x10^3/uL (1.8-6.8); NEUTROPHILS % (AUTO) 80 % (42-75)
[2018-10-08] MEDS ORDERED: SPIRONOLACTONE 25 MG TABLET ONE ×2 (08:17→08:18)
[2018-10-08 08:19] VITALS: BP 97/68
[2018-10-08] MEDS: FOLIC ACID 1 MG TABLET PO SCH (08:25)
[2018-10-08] MEDS: THIAMINE 100MG TABLET PO SCH (08:25)
[2018-10-08] MEDS: FUROSEMIDE 20 MG TABLET PO SCH (08:25)
[2018-10-08] MEDS: MULTIVITAMINS/MINERALS TABLET PO SCH (08:25)
[2018-10-08] MEDS: SPIRONOLACTONE 50 MG TABLET PO SCH (08:37)
[2018-10-08] MEDS ORDERED: FURO20TA3 PO (12:57)
[2018-10-08] MEDS ORDERED: SPIR50TA PO (12:57)
[2018-10-08] MEDS ORDERED: POTA20TA6 PO (12:57)
[2018-10-08 14:41] VITALS: BP 93/55
== END 2018-10-08 16:00 | disposition home or self-care (01) | DRG 432 ==
LOC: ED 17:07 → EDIP 19:18 → 4NOR 19:56 → DCLOUNGE 10-08 15:45
PROVIDERS: ADMIT Internal Medicine; ATTEND Internal Medicine
PROC: 0W9G3ZZ Drainage of Peritoneal Cavity, Percutaneous Approach (ICD-10-PCS; principal; 2018-10-06)
DX: K70.40 Alcoholic hepatic failure without coma (principal); E43 Unspecified severe protein-calorie malnutrition; A04.72 Enterocolitis due to Clostridium difficile, not specified as recurrent; D68.4 Acquired coagulation factor deficiency; N39.0 Urinary tract infection, site not specified; B96.89 Other specified bacterial agents as the cause of diseases classified elsewhere; E03.9 Hypothyroidism, unspecified; E87.6 Hypokalemia; K70.31 Alcoholic cirrhosis of liver with ascites; F17.200 Nicotine dependence, unspecified, uncomplicated; I10 Essential (primary) hypertension; K70.11 Alcoholic hepatitis with ascites; F10.20 Alcohol dependence, uncomplicated; K76.0 Fatty (change of) liver, not elsewhere classified; Z98.51 Tubal ligation status; Z82.61 Family history of arthritis; Z83.3 Family history of diabetes mellitus
CPT/HCPCS: 36415; 99285; J3370; 49083; 71045; 80048; 80053; 80076; 80307; 81001; 82140; 82962; 83605; 83690; 83735; 83880; 84100; 85025; 85610; 85730; 87070; 87086; 87205; 87324; 89051; 93005; G0378; J0696; J2405; J3480; J1940; J7040

== ENCOUNTER 2018-10-19 10:42 | Emergency (ER) | payer BC ==
[~2018-10-19] VITALS: Ht 175.3 cm; Wt 68.2 kg
[~2018-10-19 10:42] MED LIST changes: +SPIR50TA PO
--- NOTE | 2018-10-19 11:25 | NUR ---
PT TO ROOM FROM LOBBY BY WC. ASSUMING PT CARE AT THIS TIME.
--- NOTE | 2018-10-19 11:51 | NUR ---
PT PROVIDED WITH URINE CUP AND EDUCATION ON CLEAN CATCH. UNABLE TO URTINATE AT THIS TIME.
[2018-10-19 12:34] LABS: INTERNATIONAL NORMALIZED RATIO 1.42 (0.93-1.1); PROTHROMBIN TIME 14.7 Seconds (9.6-11.5)
--- NOTE | 2018-10-19 12:36 | NUR ---
PT STILL UNABLE TO PROVIDE URINE SAMPLE. STATED "I JUST CAN'T PEE, I DONT HAVE MUCH IN ME." WILL ADVISE .
[2018-10-19 12:42] LABS: ALBUMIN 2.1 g/dL (3.4-5.0); ANION GAP 9 mmol/L (5-15); CALCIUM 8.6 mg/dL (8.5-10.1); CHLORIDE 92 mmol/L (98-107)
--- NOTE | 2018-10-19 12:42 | NUR ---
PT PROVIDED WITH WATER AFTER OK BY . US TO BEDSIDE.
[2018-10-19 12:46] LABS: ALANINE AMINOTRANSFERASE 27 U/L (12-78); ALKALINE PHOSPHATASE 202 U/L (45-117); BILIRUBIN,TOTAL 12.6 mg/dL (0.2-1.0); CREATININE 0.99 mg/dL (0.55-1.02); TOTAL PROTEIN 6.4 g/dL (6.4-8.2)
[2018-10-19 12:57] LABS: MEAN CORPUSCULAR HEMOGLOBIN 36.3 pg (27.0-34.8); MEAN CORPUSCULAR HGB CONC 32.2 g/dL (32.4-35.8); MEAN CORPUSCULAR VOLUME 112.9 fL (80-100); MEAN PLATELET VOLUME 7.3 fL (7.4-10.4); PLATELET COUNT 245 x10^3/uL (130-400); RED BLOOD COUNT 3.33 x10^6/uL (3.82-5.3); RED CELL DISTRIBUTION WIDTH 17.3 % (9.6-15.2)
--- NOTE | 2018-10-19 12:57 | NUR ---
Report to VIKAS Gallegos
[2018-10-19 12:58] LABS: MD YES
[2018-10-19 12:59] LABS: ANISOCYTOSIS 1+; BAND#(MANUAL) 0.22 x10^3/uL; BANDS%(MANUAL) 1 % (0-7); BASOS#(MANUAL) 0.22 x10^3/uL (0-0.1); BASOS% (MANUAL) 1 % (0-1); EOS#(MANUAL) 0.65 x10^3/uL (0.0-0.4); EOS% (MANUAL) 3 % (1-7); LYMPH#(MANUAL) 2.37 x10^3/uL (1-3.4); LYMPHS% (MANUAL) 11 % (22-44); MONOS#(MANUAL) 0.86 x10^3/uL (0.3-2.7); MONOS% (MANUAL) 4 % (2-9); POLYCHROMASIA 1+; SEGS% (MANUAL) 80 % (42-75)
[2018-10-19 13:00] LABS: <PLATELET ESTIMATE> ADEQUATE; <PLT MORPHOLOGY> NORMAL PLT MORPH
[2018-10-19 13:01] LABS: PMNS WITH VACUOLES 1+
--- NOTE | 2018-10-19 13:22 | NUR ---
FIRST CONTACT WITH PT. PT SITTING UP IN [facility], WATCHING TV AND TALKING TO SO W EASE. BP/SPO2 MONITORING IN PLACE. PT AND SO UPDATED TO POC (RESULTS/RECHECK) AND DEMONSTRATES UNDERSTANDING. PT AWARE OF NEED FOR UA, UNABLE TO PROVIDE AT THIS TIME.
[2018-10-19] MEDS ORDERED: POTASSIUM CHLORIDE 20 MEQ PACKET PO ONE (14:00)
[2018-10-19] MEDS ORDERED: LIDOCAINE-MPF 1%, 5ML ONE (14:02)
[2018-10-19] MEDS ORDERED: POTASSIUM CHLORIDE 20 MEQ PACKET ONE (14:17)
--- NOTE | 2018-10-19 14:21 | NUR ---
pt to us via félix
--- NOTE | 2018-10-19 14:55 | NUR ---
PT RETURNED FROM UA/PARA. NAD NOTED. PT REPORTS IMPROVED PAIN SP PARA. SO AT BEDSIDE. CHART UP FOR RECHECK
--- NOTE | 2018-10-19 15:15 | NUR ---
ERP AWARE OF WBC. NO NEW ORDERS RECEIVED. AWAITING FLUID ANALYSIS FOR FURTHER ORDERS.
[2018-10-19] MEDS ORDERED: ONDANSETRON ODT 4 MG PO ONE (16:00)
[2018-10-19] MEDS ORDERED: ONDANSETRON ODT 4 MG ONE (16:02)
--- NOTE | 2018-10-19 16:09 | NUR ---
PT WITH EMESIS X THREE. STATES "THIS HAPPENS ALOT", REPORTS TAKING ZOFRAN FOR SAME. ERP AWARE. ORDERS RECEIVED. PT MEDICATED PER EMAR
--- NOTE | 2018-10-19 16:33 | NUR ---
PT REPORTS IMPROVEMENT IN NAUSEA WITH MEDICATIONS. CONTACTED LAB REGARDING PENDING FLUID. CROP SCOUT STATES "IT IS BEING RUN".
--- NOTE | 2018-10-19 16:50 | NUR ---
REPORT TO VIKAS PINEDO
[2018-10-19 17:24] VITALS: BP 92/59
== END 2018-10-19 17:26 | disposition home or self-care (01) ==
LOC: ED 11:37
DX: K70.0 Alcoholic fatty liver (principal); R18.8 Other ascites; D72.829 Elevated white blood cell count, unspecified; I10 Essential (primary) hypertension; Z90.89 Acquired absence of other organs; Z90.49 Acquired absence of other specified parts of digestive tract
CPT/HCPCS: 36415; 49083; 76700; 80053; 83690; 85025; 85610; 85730; 87070; 87205; 89051; 99285; Q0162; 99284

== ENCOUNTER 2018-10-28 00:58 | Emergency (ER) | payer BC ==
[~2018-10-28] VITALS: Ht 172.7 cm; Wt 65.0 kg
[2018-10-28 04:47] VITALS: BP 102/86
== END 2018-10-28 05:44 | disposition home or self-care (01) ==
LOC: ED 03:53
DX: K70.31 Alcoholic cirrhosis of liver with ascites (principal); R10.84 Generalized abdominal pain; I10 Essential (primary) hypertension; F17.200 Nicotine dependence, unspecified, uncomplicated; Z72.9 Problem related to lifestyle, unspecified; Z90.49 Acquired absence of other specified parts of digestive tract; Z90.89 Acquired absence of other organs
CPT/HCPCS: 36415; 49083; 80053; 83690; 85025; 85610; 87070; 87205; 89051; 99285; Q0162

== ENCOUNTER 2018-11-08 07:58 | Emergency (ER) | payer BC ==
[~2018-11-08] VITALS: Ht 175.3 cm; Wt 61.6 kg
[2018-11-08] MEDS ORDERED: UNK MED (08:26)
[2018-11-08] MEDS ORDERED: DIURETIC (08:26)
[2018-11-08] MEDS ORDERED: LIDOCAINE-MPF 1%, 5ML ONE (08:27)
--- NOTE | 2018-11-08 08:37 | NUR ---
PT OUT FOR PROCEDURE AT THIS TIME.
[2018-11-08 08:39] LABS: BASOPHILS # (AUTO) 0.11 x10^3/uL (0-0.1); BASOPHILS % (AUTO) 1 % (0-1); EOSINOPHILS % (AUTO) 3 % (1-7); LYMPHOCYTES # (AUTO) 2.71 x10^3/uL (1-3.4); LYMPHOCYTES % (AUTO) 19 % (22-44); MD NO; MEAN CORPUSCULAR HEMOGLOBIN 33.8 pg (27.0-34.8); MEAN CORPUSCULAR HGB CONC 32.2 g/dL (32.4-35.8); MEAN CORPUSCULAR VOLUME 104.8 fL (80-100); MEAN PLATELET VOLUME 7.8 fL (7.4-10.4); MONOCYTES # (AUTO) 0.74 x10^3/uL (0.2-0.8); MONOCYTES % (AUTO) 5 % (2-9); NEUTROPHILS # (AUTO) 10.47 x10^3/uL (1.8-6.8); NEUTROPHILS % (AUTO) 73 % (42-75); PLATELET COUNT 232 x10^3/uL (130-400); RED CELL DISTRIBUTION WIDTH 16.5 % (9.6-15.2)
[2018-11-08 08:49] LABS: ALANINE AMINOTRANSFERASE 35 U/L (12-78); CALCIUM 8.6 mg/dL (8.5-10.1); CREATININE 1.99 mg/dL (0.55-1.02)
[2018-11-08 08:51] LABS: INTERNATIONAL NORMALIZED RATIO 1.27 (0.93-1.1); PROTHROMBIN TIME 13.2 Seconds (9.6-11.5)
[2018-11-08 08:53] LABS: ALKALINE PHOSPHATASE 218 U/L (45-117); BILIRUBIN,TOTAL 6.8 mg/dL (0.2-1.0); TOTAL PROTEIN 6.6 g/dL (6.4-8.2)
[2018-11-08 08:56] LABS: ANION GAP 12 mmol/L (5-15); CHLORIDE 99 mmol/L (98-107)
--- NOTE | 2018-11-08 09:25 | NUR ---
Pt returned from procedure at this time. Informed of need for urine sample. Pt states that she just went after the procedure and before she returned to the floor. Pt given two glasses of water and a cup, and reminded to call when ready.
[2018-11-08 09:38] LABS: CELLS COUNTED 90
--- NOTE | 2018-11-08 09:52 | NUR ---
Pt resting in bed, denies the ability to urinate at this time. Denies any further needs or concerns.
--- NOTE | 2018-11-08 10:20 | NUR ---
Pt up to restroom, attempting to collect U/A.
[2018-11-08] MEDS ORDERED: POTASSIUM CHLORIDE 20 MEQ TAB.ER.PRT PO ONE (10:30)
[2018-11-08] MEDS ORDERED: ONDANSETRON ODT 4 MG ONE (10:34)
[2018-11-08] MEDS ORDERED: POTASSIUM CHLORIDE 20 MEQ TAB.ER.PRT ONE (10:35)
[2018-11-08 10:57] LABS: CULTURE INDICATED? YES; MICROSCOPIC INDICATED
[2018-11-08] MEDS ORDERED: ONDANSETRON ODT 4 MG PO ONE (11:00)
[2018-11-08 11:42] VITALS: BP 105/72
[2018-12-12] MEDS ORDERED: FURO20TA3 PO (12:31)
[2018-12-12] MEDS ORDERED: SPIR25TA5 PO (12:31)
[2018-12-14] MEDS ORDERED: MAGN400T36 PO (09:56)
== END 2018-11-08 11:43 | disposition home or self-care (01) ==
LOC: ED 08:27
DX: K70.30 Alcoholic cirrhosis of liver without ascites (principal); N30.01 Acute cystitis with hematuria; N28.9 Disorder of kidney and ureter, unspecified; E87.6 Hypokalemia; I10 Essential (primary) hypertension; E03.9 Hypothyroidism, unspecified
CPT/HCPCS: 36415; 49083; 80053; 81001; 85025; 85610; 87070; 87077; 87086; 87205; 89051; 99285; Q0162; 87186

== ENCOUNTER 2019-09-28 20:59 | Emergency (ER) | payer BC ==
[~2019-09-28] VITALS: Ht 174 cm; Wt 70.0 kg
[~2019-09-28 20:59] MED LIST changes: +DIURETIC; +MAGN400T36 PO; +MULT-449 PO; -MULT1TAB60 PO; +SPIR25TA5 PO; +UNK MED
[2019-09-28] MEDS ORDERED: KETOROLAC 30 MG/1 ML IM ONE (23:00)
[2019-09-28] MEDS ORDERED: KETOROLAC 30 MG/1 ML ONE (23:13)
[2019-09-28 23:32] VITALS: BP 146/78
--- NOTE | 2019-09-28 23:32 | NUR ---
PATIENT GIVEN IM INJECTION OF TORADOL, GIVEN EDUCATION REGARDING IM INJECTION AND POSSIBLE COMPLICATIONS. PATIENT MADE EDUCATED CHOICE TO LEAVE PRIOR TO THE 30MIN TIMEFRAME.
== END 2019-09-28 23:43 | disposition home or self-care (01) ==
LOC: ED 23:37
DX: S80.212A Abrasion, left knee, initial encounter (principal); M25.462 Effusion, left knee; F17.210 Nicotine dependence, cigarettes, uncomplicated; E03.9 Hypothyroidism, unspecified; I10 Essential (primary) hypertension; Z90.49 Acquired absence of other specified parts of digestive tract; Z90.89 Acquired absence of other organs; W01.0XXA Fall on same level from slipping, tripping and stumbling without subsequent striking against object, initial encounter; Y93.89 Activity, other specified; Y92.410 Unspecified street and highway as the place of occurrence of the external cause; Y99.8 Other external cause status
CPT/HCPCS: 29505; 73564; 96372; 99283; 99406; J1885